=== PATIENT | male | born 1930 | race Two or more races ===

== ENCOUNTER 2017-04-01 18:22 | Inpatient (IN) | payer MEDICARE, MEDICAID ==
--- NOTE | 2017-04-01 18:56 | ED Physician Chart ---
ED Chief Complaint/HPI - Patient Information Date Seen:: 04/01/17 Time Seen:: 16:30 Chief Complaint:: Agitation History of Present Illness:: onset x one day of agitation and confusion; no report of trauma, H/As, neck pain , C/P, SOB, Abd. Pain, A/N/V/D/c, SIs, fever, chills, or urinary s/s Allergies:: Allergies Allergy/AdvReac Type Severity Reaction Status Date / Time No Known Allergies Allergy Verified 04/01/17 18:28 Vitals:: Vital Signs - 8 hr 04/01/17 18:31 Temp 96.7 F HR 89 RR 18 BP 124/47 O2 Sat % 91 Historian:: Patient, EMS Review:: Nurse's Note Reviewed, EMS run form Reviewed, Transfer documents Reviewed <Irvin Barnes - Last Filed: 04/01/17 18:50> - Patient Information Allergies:: Allergies Allergy/AdvReac Type Severity Reaction Status Date / Time No Known Allergies Allergy Verified 04/01/17 18:28 Vitals:: Vital Signs - 8 hr 04/01/17 18:31 Temp 96.7 F HR 89 RR 18 BP 124/47 O2 Sat % 91 <Vega Bragg - Last Filed: 04/01/17 21:21> ED Review of Systems - Review of Systems General/Constitutional: No fever, No chills, No weight loss, No weakness, No diaphoresis, No edema, No loss of appetite Skin: No skin lesions, No rash, No bruising Head: No headache, No light-headedness Eyes: No loss of vision, No pain, No diplopia ENT: No earache, No nasal drainage, No sore throat, No tinnitus Neck: No neck pain, No swelling, No thyromegaly, No stiffness, No mass noted Cardio Vascular: No chest pain, No palpitations, No PND, No orthopnea, No edema Pulmonary: No SOB, No cough, No sputum, No wheezing GI: No nausea, No vomiting, No diarrhea, No pain, No melena, No hematochezia, No constipation, No hematemesis G/U: No dysuria, No frequency, No hematuria Musculoskeletal: No bone or joint pain, No back pain, No muscle pain Endocrine: No polyuria, No polydipsia Psychiatric: Prior psych history, Depression, No anxiety, No suicidal ideation, No homicidal ideation, No auditory hallucination, No visual hallucination Hematopoietic: No bruising, No lymphadenopathy Allergic/Immuno: No urticaria, No angioedema Neurological: No syncope, No focal symptoms, No weakness, No paresthesia, No headache, No seizure, No dizziness, Confusion, No vertigo <Irvin Barnes Last Filed: 04/01/17 18:50> ED Past Medical History - Past Medical History Obtainable: Yes Past Medical History: Arthritis, Dementia, Other (Metabolic Encephalopathy) Family History: HTN Social History: Non Smoker, No Alcohol, No Drug Use, Single, Care Facility Surgical History: None Psychiatricy History: Depression, Bipolar, Dementia Medication: Reviewed <CameronIrvin Filed: 04/01/17 18:50> ED Physical Exam - Physical Examination General/Constitutional: Awake, Well-developed, well-nourished, Alert, No distress, GCS 15, Non-toxic appearing, Ambulatory Head: Atraumatic Eyes: Lids, conjuctiva normal, PERRL, EOMI Skin: Nl inspection, No rash, No skin lesions, No ecchymosis, Well hydrated, No lymphadenopathy ENMT: External ears, nose nl, Nasal exam nl, Lips, teeth, gums nl Neck: Nontender, Full ROM w/o pain, No JVD, No nuchal rigidity, No bruit, No mass, No stridor Respiratory: Nl effort/Exclusion, Clear to Auscultation, No Wheeze/Rhonchi/Rales Cardio Vascular: RRR, No murmur, gallop, rubs, NL S1 S2 GI: No tenderness/rebounding/guarding, No organomegaly, No hernia, Normal BS's, Nondistended, No mass/bruits, No McBurney tenderness : No CVA tenderness Extremities: No tenderness or effusion, Full ROM, normal strength in all extremities, No edema, Normal digits & nails Neuro/Psych: DTR's symmetric, Normal sensory exam, Normal motor strength, Judgement/insight normal, Mood normal, Normal gait, No focal deficits Other Neuro/Psych comments:: Disoriented and Confused; + Psychomotor Agitation; Mood/Affect: Labile Misc: Normal back, No paraspinal tenderness <SheritacesareuniceIrvin - Last Filed: 04/01/17 18:50> ED Labs/Radiology/EKG Results - Lab Results Results: Laboratory Tests 04/01/17 04/01/17 04/01/17 19:12 19:12 19:12 WBC 15.0 H RBC 4.40 Hgb 13.6 Hct 41.3 MCV 94.0 MCH 31.0 MCHC Differential 33.0 RDW 17.0 Plt Count 125 L MPV 8.3 Neutrophils (Manual) 54 Lymphocytes 29 Monocytes 14 H Eosinophils 1 Basophils 2 Platelet Estimate SLIGHT DECREASED Sodium 136 Potassium 3.9 Chloride 106 Carbon Dioxide 24.1 Anion Gap 9.8 BUN 45 H Creatinine 1.4 H Est GFR ( Amer) TNP Est GFR (Non-Af Amer) TNP BUN/Creatinine Ratio 32.1 Glucose 98 Hemoglobin A1c % 5.2 Whole Bld Lactic Acid Calcium 9.2 Total Bilirubin 0.7 AST 20 ALT 18 Alkaline Phosphatase 90 Total Protein 7.8 Albumin 3.7 L Globulin 4.1 Albumin/Globulin Ratio 0.9 L Triglycerides 127 Cholesterol 126 LDL Cholesterol Direct 75 HDL Cholesterol 38 TSH Urine Source Urine Color Urine Clarity Urine pH Ur Specific [place] Urine Protein Urine Glucose (UA) Urine Ketones Urine Blood Urine Nitrate Urine Bilirubin Urine Urobilinogen Ur Leukocyte Esterase Urine RBC Urine WBC Ur Epithelial Cells Urine Bacteria Salicylates < 25.0 L Urine Opiates Screen Urine Methadone Screen Acetaminophen < 10.0 L Ur Barbiturates Screen Ur Tricyclics Screen Ur Phencyclidine Scrn Amphetamines Screen U Methamphetamines Scrn U Benzodiazepines Scrn U Cocaine Metab Screen U Cannabinoids Screen Ethyl Alcohol < 10 04/01/17 04/01/17 04/01/17 19:12 19:12 19:45 WBC RBC Hgb Hct MCV MCH MCHC Differential RDW Plt Count MPV Neutrophils (Manual) Lymphocytes Monocytes Eosinophils Basophils Platelet Estimate Sodium Potassium Chloride Carbon Dioxide Anion Gap BUN Creatinine Est GFR ( Amer) Est GFR (Non-Af Amer) BUN/Creatinine Ratio Glucose Hemoglobin A1c % Whole Bld Lactic Acid 0.95 Calcium Total Bilirubin AST ALT Alkaline Phosphatase Total Protein Albumin Globulin Albumin/Globulin Ratio Triglycerides Cholesterol LDL Cholesterol Direct HDL Cholesterol TSH Urine Source CLEAN C Urine Color YELLOW Urine Clarity HAZY Urine pH 6.0 Ur Specific [place] 1.025 Urine Protein 100 H Urine Glucose (UA) NEGATIVE Urine Ketones NEGATIVE Urine Blood MODERATE H Urine Nitrate POSITIVE H Urine Bilirubin NEGATIVE Urine Urobilinogen 0.2 Ur Leukocyte Esterase LARGE H Urine RBC 5-10 H Urine WBC >100 H Ur Epithelial Cells FEW Urine Bacteria MANY Salicylates Urine Opiates Screen Urine Methadone Screen Acetaminophen Ur Barbiturates Screen Ur Tricyclics Screen Ur Phencyclidine Scrn Amphetamines Screen U Methamphetamines Scrn U Benzodiazepines Scrn U Cocaine Metab Screen U Cannabinoids Screen Ethyl Alcohol 04/01/17 19:45 WBC RBC Hgb Hct MCV MCH MCHC Differential RDW Plt Count MPV Neutrophils (Manual) Lymphocytes Monocytes Eosinophils Basophils Platelet Estimate Sodium Potassium Chloride Carbon Dioxide Anion Gap BUN Creatinine Est GFR ( Amer) Est GFR (Non-Af Amer) BUN/Creatinine Ratio Glucose Hemoglobin A1c % Whole Bld Lactic Acid Calcium Total Bilirubin AST ALT Alkaline Phosphatase Total Protein Albumin Globulin Albumin/Globulin Ratio Triglycerides Cholesterol LDL Cholesterol Direct HDL Cholesterol TSH Urine Source Urine Color Urine Clarity Urine pH Ur Specific [place] Urine Protein Urine Glucose (UA) Urine Ketones Urine Blood Urine Nitrate Urine Bilirubin Urine Urobilinogen Ur Leukocyte Esterase Urine RBC Urine WBC Ur Epithelial Cells Urine Bacteria Salicylates Urine Opiates Screen NEGATIVE Urine Methadone Screen NEGATIVE Acetaminophen Ur Barbiturates Screen NEGATIVE Ur Tricyclics Screen NEGATIVE Ur Phencyclidine Scrn NEGATIVE Amphetamines Screen NEGATIVE U Methamphetamines Scrn NEGATIVE U Benzodiazepines Scrn NEGATIVE U Cocaine Metab Screen NEGATIVE U Cannabinoids Screen NEGATIVE Ethyl Alcohol <Vega Bragg - Last Filed: 04/01/17 21:21> ED Septic Shock - . Is Septic Shock (SBP<90, OR Lactate>4 mmol\L) present?: No - <6hrs of presentation: Vital Signs: Vital Signs - 8 hr 04/01/17 18:31 Temp 96.7 F HR 89 RR 18 BP 124/47 O2 Sat % 91 <Irvin Barnes - Last Filed: 04/01/17 18:50> - . Is Septic Shock (SBP<90, OR Lactate>4 mmol\L) present?: No - <6hrs of presentation: Vital Signs: Vital Signs - 8 hr 04/01/17 18:31 Temp 96.7 F HR 89 RR 18 BP 124/47 O2 Sat % 91 <Vega Bragg - Last Filed: 04/01/17 21:21> ED Reassessment (Disposition) - Reassessment Reassessment:: pt in stable condition while in ER. findings on lab evaluation consistent with acute urinary infection with WBC 15. normal lactate. pt in stable condition. pt to receive PO levofloxacin now. Reassessment Condition:: Unchanged - Diagnosis Diagnosis:: acute psychosis acute urinary infection - Patient Disposition Discharge/Transfer:: Acute Care w/in this hosp Admitted to:: [facility] Admitting Medical Physician:: Gelacio Hanna Admitting Psych Physician:: Yissel Dickey Time:: 21:20 Condition at Disposition:: Stable, Improved <Vega Bragg - Last Filed: 04/01/17 21:21> ED Discharge Plan <Irvin Barnes - Last Filed: 04/01/17 18:50> <Vega Bragg - Last Filed: 04/01/17 21:21> - Patient Disposition Instructions: Psychosis
[2017-04-01 19:22] LABS: HEMATOCRIT 41.3 % (41.0-60); HEMOGLOBIN 13.6 gm/dL (12-16); MEAN PLATELET VOLUME 8.3 fl; NEUTROPHILE ABSOLUTE 7.8 Th/cmm (1.8-8.0); PLATELET COUNT 125 Th/cmm (150-400)
[2017-04-01 19:37] LABS: ALB/GLOB RATIO 0.9 (1.0-1.8); ALKALINE PHOSPHATASE 90 U/L (34-104); ANION GAP 9.8 (7.0-16.0); BILIRUBIN,TOTAL 0.7 mg/dL (0.3-1.0); BUN - UREA NITROGEN 45 mg/dL (7-25); BUN/CREATININE RATIO 32.1; CALCIUM SERUM 9.2 mg/dL (8.6-10.3); CARBON DIOXIDE 24.1 mEq/L (21.0-31.0); CHLORIDE 106 mEq/L (98-107); CHOLESTEROL 126 mg/dL (<200); CREATININE - SERUM 1.4 mg/dL (0.7-1.3); GLUCOSE 98 mg/dL (70-105); POTASSIUM SERUM 3.9 mEq/L (3.5-5.1); SGOT 20 U/L (13-39); SGPT/ALT 18 U/L (7-52); SODIUM SERUM 136 mEq/L (136-145); TRIGLYCERIDES 127 mg/dL (<150)
[2017-04-01 19:38] LABS: ACETAMINOPHEN < 10.0 ug/mL (10.0-30.0)
[2017-04-01 19:51] LABS: BASOPHIL 2 % (0-3); EOSINOPHIL 1 % (0-5); NEUTROPHILS 54 % (40-80)
[2017-04-01 19:52] LABS: PLATELET ESTIMATE SLIGHT DECREASED (NORMAL)
[2017-04-01 20:33] LABS: URINE BILIRUBIN NEGATIVE (NEGATIVE); URINE BLOOD MODERATE (NEGATIVE); URINE GLUCOSE (UA) NEGATIVE (NEGATIVE); URINE KETONE NEGATIVE (NEGATIVE); URINE PROTEIN 100 mg/dL (NEGATIVE); URINE UROBILINOGEN 0.2 E.U./dL (0.2 - 1.0)
[2017-04-01 20:44] LABS: URINE BACTERIA MANY /hpf (NONE SEEN); URINE COLOR YELLOW; URINE EPITHELIAL CELLS FEW /lpf (FEW)
[2017-04-01 20:45] LABS: URINE WBC >100 /hpf (0-5)
[2017-04-01 20:48] LABS: AMPHETAMINE URINE NEGATIVE (NEGATIVE); BARBITURATES URINE NEGATIVE (NEGATIVE); METHADONE URINE NEGATIVE (NEGATIVE)
--- NOTE | 2017-04-02 07:49 | Diagnostic Imaging Report ---
CHEST X-RAY: AP view INDICATION: Elevated white blood cell count, shortness of breath COMPARISON: None FINDINGS: Increased left basal density is noted. No pleural effusions. Heart size is normal. Atherosclerosis of the aortic arch is noted. The osseous structures are intact. IMPRESSION: Left basal atelectasis versus infiltrate. Clinical correlation is recommended.
[2017-04-02] MEDS: Aspirin 81mg Chewable Tab PO SCH (08:33)
[2017-04-02] MEDS: Ferrous Sulfate 325 MG TAB PO SCH ×3 (08:33→16:20)
[2017-04-02] MEDS: Multivitamin Tab PO SCH (08:36)
--- NOTE | 2017-04-02 13:09 | History and Physical ---
History of Present Illness - HPI Chief Complaint: Increased in confusion and agitation HPI: Patient is a permanent resident of a [facility]. He was send to ER due to Increased in agitation. Vital Signs: Last Vital Signs Temp 97.8 F 04/02/17 06:40 Pulse 73 04/02/17 06:40 Resp 19 04/02/17 06:40 BP 111/57 04/02/17 06:40 Pulse Ox 98 04/02/17 06:40 Family Medical History - Family Member Mother History Unknown: Yes Ethnicity: Unknown Living Status: Unknown Social History Smoke: No Alcohol: None Drugs: None Lives: [facility] Domestic Violence: Negative - Medications Home Medications: Home Medication Medication Instructions Recorded Type Acetaminophen [Tylenol] 650 mg PO Q6HR PRN 04/01/17 History Allopurinol 200 mg PO DAILY 04/01/17 History Aspirin [Aspirin Chewable] 81 mg PO DAILY 04/01/17 History Bisacodyl [Dulcolax 10 Mg Supp] 10 mg RC DAILY PRN 04/01/[address] [Depakote DR] 250 mg PO Q12H 04/01/17 History Docusate Sodium [Colace] 100 mg PO DAILY 04/01/17 History Ferrous Sulfate [Iron] 1 tab PO BID 04/01/17 History Finasteride [Proscar*] 5 mg PO DAILY 04/01/17 History Memantine [Namenda] 5 mg PO HS 04/01/17 History Multivitamin [Multivitamins] 1 cap PO DAILY 04/01/17 History [place]-3 Fatty Acids/Fish Oil 2 each PO BID 04/01/17 History [[place] 3 Fish Oil Softgel] QUEtiapine Fumarate [SEROquel] 25 mg PO Q12H 04/01/17 History Sennosides A and B [Senna] 8.6 mg PO DAILY 04/01/17 History - Allergies Allergies/Adverse Reactions: Allergies Allergy/AdvReac Type Severity Reaction Status Date / Time No Known Allergies Allergy Verified 04/01/17 18:28 Review of Systems - Review of Systems Constitutional: Report: No Significant Eyes: Report: No Significant ENT: Report: No Significant Respiratory: Report: No Significant Cardiovascular: Report: No Significant Gastrointestinal: Report: No Significant Genitourinary: Report: No Significant Musculoskeletal: Report: No Significant Skin: Report: No Significant Neurological: Report: Weakness Physical Exam - Physical Exam HEENT: Report: Ears Nose Throat within normal limits Neck: Report: Within normal limits Cardiovascular Systems: Report: Regular, Rate and Rhythm Respiratory: Report: Breath Sounds are within normal limits Back: Report: Inspection of back is within normal limits. Extremities: Report: Non-tender to palpation. Skin: Report: Color of skin is within normal limits, Warm, Dry Neuro/Psych: Report: Depressed affect - Assessment Assessment: Current Active Problems Problem Status Onset INCREASED CONFUSION AND AGITATION Acute Patient is awake, alert, confused, not oriented. Dx: Increased in agitation, UTI, Gout, BPH, Dementia - Plan Plan: Patient is follow by psychiatry. AB will be started.
[2017-04-02] MEDS ORDERED: Probiotic Screen MC PRN (15:29)
[2017-04-02] MEDS: Sulfamethoxazole/TMP 800/160mg Tab PO SCH ×2 (16:05→16:21)
[2017-04-02] MEDS: Lactobacillus Rhamnosus 10 Billion CFU Capsule PO SCH (16:20)
--- NOTE | 2017-04-02 23:24 | Psychosocial Evaluation ---
DATE OF SERVICE: 04/01/2017 IDENTIFYING DATA: The patient is an 87-year-old male admitted here from [facility]. Information obtained by directly interviewing the patient as well as reviewing the admission papers and they are reliable. JUSTIFICATION OF HOSPITALIZATION: The patient is admitted here on a voluntary basis in view of his confusion and acute agitation. CHIEF COMPLAINT: "I do not know, I am not feeling well." HISTORY OF PRESENT ILLNESS: This is the first psychiatric hospitalization to [facility] for this patient who is reported to have been very very agitated and confused and not making much sense. Prior to the hospitalization, the patient has been on 250 mg twice a day of Depakote and Seroquel also he has been getting 25 mg twice a day and the patient has been very confused and is not making much sense and has been trying to pull the Marni chair handle and then wants to get out of the Marni chair. The patient is getting easily frustrated. PAST PSYCHIATRIC HISTORY: Details are not known. MEDICAL HISTORY: Physical examination is requested by Dr. Hanna. SUBSTANCE ABUSE HISTORY: None. PHYSICAL OR SEXUAL ABUSE HISTORY: None. LEGAL PROBLEMS: None at this time. MENTAL STATUS EXAMINATION: The patient is an 87-year-old, looking his stated age, superficially cooperative. Eye contact is poor. Mood is noted to be depressed. Affect is constricted. The patient has been having difficult time to cope with the stress. The patient's insight and judgment at this time are noted to be impaired. Impulse control seems to be limited. The patient has both short-term and manager long term care memory deficits. The patient is not able to recall his date of or the reason for him to be in the hospital. The patient has been having difficult time to cope with the stress. The patient's behavior is likely danger to self because of his agitation. DIAGNOSTIC IMPRESSION: 1a. 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 IMMEDIATE TREATMENT PLAN: The patient is going to be observed on inpatient unit, provided with supportive psychotherapy. The patient is going to be closely monitored. Once stabilized, the patient is going to be discharged to [facility] to be followed up on an outpatient basis. Please note that the patient is going to be continued on the Seroquel and followed up. JOB# [id number]
[2017-04-03] MEDS: Multivitamin Tab PO SCH (10:42)
[2017-04-03] MEDS: Aspirin 81mg Chewable Tab PO SCH (10:43)
[2017-04-03] MEDS: Sulfamethoxazole/TMP 800/160mg Tab PO SCH ×2 (10:43→16:48)
[2017-04-03] MEDS: Ferrous Sulfate 325 MG TAB PO SCH ×2 (10:43→16:48)
[2017-04-03] MEDS: Lactobacillus Rhamnosus 10 Billion CFU Capsule PO SCH (10:44)
--- NOTE | 2017-04-03 16:49 | General Progress Note ---
Subjective - Review of Systems Service Date: 04/03/17 Subjective: Confused Objective - Results Result Diagrams: 04/01/17 19:12 04/01/17 19:12 Recent Labs: Laboratory Last Values WBC 15.0 Th/cmm (4.8-10.8) H 04/01/17 19:12 RBC 4.40 Mil/cmm (3.80-5.80) 04/01/17 19:12 Hgb 13.6 gm/dL (12-16) 04/01/17 19:12 Hct 41.3 % (41.0-60) 04/01/17 19:12 MCV 94.0 fl (80-99) 04/01/17 19:12 MCH 31.0 pg (27.0-31.0) 04/01/17 19:12 MCHC Differential 33.0 pg (28.0-36.0) 04/01/17 19:12 RDW 17.0 % (11.5-20.0) 04/01/17 19:12 Plt Count 125 Th/cmm (150-400) L 04/01/17 19:12 MPV 8.3 fl 04/01/17 19:12 Neutrophils (Manual) 54 % (40-80) 04/01/17 19:12 Lymphocytes 29 % (20-50) 04/01/17 19:12 Monocytes 14 % (2-10) H 04/01/17 19:12 Eosinophils 1 % (0-5) 04/01/17 19:12 Basophils 2 % (0-3) 04/01/17 19:12 Platelet Estimate SLIGHT DECREASED (NORMAL) 04/01/17 19:12 Sodium 136 mEq/L (136-145) 04/01/17 19:12 Potassium 3.9 mEq/L (3.5-5.1) 04/01/17 19:12 Chloride 106 mEq/L (98-107) 04/01/17 19:12 Carbon Dioxide 24.1 mEq/L (21.0-31.0) 04/01/17 19:12 Anion Gap 9.8 (7.0-16.0) 04/01/17 19:12 BUN 45 mg/dL (7-25) H 04/01/17 19:12 Creatinine 1.4 mg/dL (0.7-1.3) H 04/01/17 19:12 Est GFR ( Amer) TNP 04/01/17 19:12 Est GFR (Non-Af Amer) TNP 04/01/17 19:12 BUN/Creatinine Ratio 32.1 04/01/17 19:12 Glucose 98 mg/dL (70-105) 04/01/17 19:12 Hemoglobin A1c % 5.2 % (4.0-6.0) 04/01/17 19:12 Whole Bld Lactic Acid 0.95 mmol/L (0.60-1.99) 04/01/17 19:12 Calcium 9.2 mg/dL (8.6-10.3) 04/01/17 19:12 Total Bilirubin 0.7 mg/dL (0.3-1.0) 04/01/17 19:12 AST 20 U/L (13-39) 04/01/17 19:12 ALT 18 U/L (7-52) 04/01/17 19:12 Alkaline Phosphatase 90 U/L (34-104) 04/01/17 19:12 Total Protein 7.8 gm/dL (6.0-8.3) 04/01/17 19:12 Albumin 3.7 gm/dL (4.2-5.5) L 04/01/17 19:12 Globulin 4.1 gm/dL 04/01/17 19:12 Albumin/Globulin Ratio 0.9 (1.0-1.8) L 04/01/17 19:12 Triglycerides 127 mg/dL (<150) 04/01/17 19:12 Cholesterol 126 mg/dL (<200) 04/01/17 19:12 LDL Cholesterol Direct 75 mg/dL (75-193) 04/01/17 19:12 HDL Cholesterol 38 mg/dL (23-92) 04/01/17 19:12 TSH uIU/ml (0.34-5.60) 04/01/17 19:12 Urine Source CLEAN C 04/01/17 19:45 Urine Color YELLOW 04/01/17 19:45 Urine Clarity HAZY (CLEAR) 04/01/17 19:45 Urine pH 6.0 (4.6 - 8.0) 04/01/17 19:45 Ur Specific [place] 1.025 (1.005-1.030) 04/01/17 19:45 Urine Protein 100 mg/dL (NEGATIVE) H 04/01/17 19:45 Urine Glucose (UA) NEGATIVE mg/dL (NEGATIVE) 04/01/17 19:45 Urine Ketones NEGATIVE mg/dL (NEGATIVE) 04/01/17 19:45 Urine Blood MODERATE (NEGATIVE) H 04/01/17 19:45 Urine Nitrate POSITIVE (NEGATIVE) H 04/01/17 19:45 Urine Bilirubin NEGATIVE (NEGATIVE) 04/01/17 19:45 Urine Urobilinogen 0.2 E.U./dL (0.2 - 1.0) 04/01/17 19:45 Ur Leukocyte Esterase LARGE (NEGATIVE) H 04/01/17 19:45 Urine RBC 5-10 /hpf (0-5) H 04/01/17 19:45 Urine WBC >100 /hpf (0-5) H 04/01/17 19:45 Ur Epithelial Cells FEW /lpf (FEW) 04/01/17 19:45 Urine Bacteria MANY /hpf (NONE SEEN) 04/01/17 19:45 Salicylates < 25.0 mg/L (30.0-100.0) L 04/01/17 19:12 Urine Opiates Screen NEGATIVE (NEGATIVE) 04/01/17 19:45 Urine Methadone Screen NEGATIVE (NEGATIVE) 04/01/17 19:45 Acetaminophen < 10.0 ug/mL (10.0-30.0) L 04/01/17 19:12 Ur Barbiturates Screen NEGATIVE (NEGATIVE) 04/01/17 19:45 Ur Tricyclics Screen NEGATIVE (NEGATIVE) 04/01/17 19:45 Ur Phencyclidine Scrn NEGATIVE (NEGATIVE) 04/01/17 19:45 Amphetamines Screen NEGATIVE (NEGATIVE) 04/01/17 19:45 U Methamphetamines Scrn NEGATIVE (NEGATIVE) 04/01/17 19:45 U Benzodiazepines Scrn NEGATIVE (NEGATIVE) 04/01/17 19:45 U Cocaine Metab Screen NEGATIVE (NEGATIVE) 04/01/17 19:45 U Cannabinoids Screen NEGATIVE (NEGATIVE) 04/01/17 19:45 Ethyl Alcohol < 10 mg/dL (0-10) 04/01/17 19:12 - Physical Exam Vitals and I&O: Vital Signs Temp 98.1 F 04/03/17 14:02 Pulse 72 04/03/17 14:02 Resp 20 04/03/17 14:02 BP 106/58 04/03/17 14:02 Pulse Ox 98 04/03/17 14:02 Intake & Output 04/02/17 04/03/17 04/03/17 18:59 06:59 18:59 Intake Total 2400 180 Output Total 1400 Balance 1000 180 Intake: Oral 2400 180 Output: Urine 1400 Other: # Voids 1 # Bowel Movements 0 1 Active Medications: Current Medications Acetaminophen (Tylenol) 650 mg PO Q6HR PRN PRN Reason: MILD PAIN Stop: 05/31/17 23:20 Allopurinol (Zyloprim) 200 mg PO DAILY MAK Stop: 06/01/17 08:59 Last Admin: 04/03/17 10:44 Dose: 200 mg Aspirin (Aspirin Chewable) 81 mg PO DAILY MAK Stop: 06/01/17 08:59 Last Admin: 04/03/17 10:43 Dose: 81 mg Bisacodyl (Dulcolax 10 Mg Supp) 10 mg RC DAILY PRN PRN Reason: CONSTIPATION NO BM 3 DAYS Stop: 05/31/17 23:20 Docusate Sodium (Colace) 100 mg PO DAILY MAK Stop: 06/01/17 08:59 Last Admin: 04/03/17 10:43 Dose: 100 mg Ferrous Sulfate (Iron) 325 mg PO BID MAK Stop: 06/01/17 08:59 Last Admin: 04/03/17 10:43 Dose: 325 mg Finasteride (Proscar) 5 mg PO DAILY AMK PRN Reason: Protocol Stop: 06/01/17 08:59 Last Admin: 04/03/17 10:43 Dose: 5 mg Lactobacillus Rhamnosus (Culturelle) 1 each PO DAILY MAK Stop: 06/01/17 15:59 Last Admin: 04/03/17 10:44 Dose: 1 each Levofloxacin (Levaquin) 500 mg PO DAILY [facility] Stop: 04/11/17 09:01 Last Admin: 04/03/17 10:43 Dose: 500 mg Lorazepam (Ativan) 0.5 mg PO Q4HR PRN; Protocol PRN Reason: Anxiety Stop: 05/01/17 23:12 Memantine (Namenda) 5 mg PO HS MAK Stop: 06/01/17 20:59 Last Admin: 04/02/17 21:00 Dose: 5 mg Miscellaneous (Probiotic Screen) 1 ea MC PRN PRN PRN Reason: PROTOCOL Stop: 06/01/17 15:28 Multivitamins/Vitamin C (Theragran) 1 tab PO DAILY [facility] Stop: 06/01/17 08:59 Last Admin: 04/03/17 10:42 Dose: 1 tab Quetiapine Fumarate (Seroquel) 25 mg PO HS MAK PRN Reason: Protocol Stop: 06/01/17 20:59 Last Admin: 04/02/17 21:00 Dose: 25 mg Senna (Senna) 8.6 mg PO DAILY MAK Stop: 06/01/17 08:59 Last Admin: 04/03/17 10:43 Dose: 8.6 mg Trimethoprim/Sulfamethoxazole (Bactrim Ds) 1 tab PO BID [facility] Stop: 06/01/17 16:59 Last Admin: 04/03/17 10:43 Dose: 1 tab Valproate Sodium (Depakene) 250 mg PO Q12HR MAK PRN Reason: Protocol Stop: 06/01/17 20:59 Last Admin: 04/03/17 10:44 Dose: 250 mg Zolpidem Tartrate (Ambien) 5 mg PO HS PRN PRN Reason: Insomnia Stop: 05/31/17 23:12 General: Alert, Other (Confused) HEENT: Atraumatic Neck: Supple Cardiovascular: Regular rate Lungs: Clear to auscultation Abdomen: Bowel sounds, Soft Extremities: Other (No edema) Neurological: Other (Non ambulatory) Skin: Other (Warm and dry) Assessment/Plan - Problem List Patient Problems: All Active Problems INCREASED CONFUSION AND AGITATION (Acute) - Assessment Assessment: Current Active Problems Problem Status Onset INCREASED CONFUSION AND AGITATION Acute Patient is awake, alert, confused, not oriented. Dx: Increased in agitation, UTI, Gout, BPH, Dementia - Plan Plan: Patient is follow by psychiatry. AB will be started. Nutritional Asmnt/Malnutr-PDOC - Dietary Evaluation Malnutrition Findings (Please click <Entered> for more info): Nutritional Asmnt/Malnutrition Start: 04/03/17 13: 09 Text: Status: Complete Freq: Document 04/03/17 13:09 [facility] (Rec: 04/03/17 13:17 [id number]) Nutritional Asmnt/Malnutrition Patient General Information Nutritional Screening Moderate Risk Diagnosis increased in agitaion, UTI, Gout, BPH, dementia Subjective Information RN reported pt had poor PO intake and requested RD to visit pt. Pt seen lying in bed , awake. confused, not ablt to obtain nutrition hx. Per note , PO intake was 0-25% by eating self yesterday 04/02. Spoke to nurse, pt consumed 100% of breakfast this morning with feeding. Visited again during lunch time, pt was saying no and refesed food. Asked SYSTEMS CONSULTANT to try later and feed slowly. Current Diet Order/ Nutrition Support [facility] soft Pertinent Medications colace, Iron, culturelle, Levauin, MVI, Vit C, Seroquel, Senna Pertinent Labs 04/01 BUN 45H, Cr 1.4H, Alb 3. 7L, Glu 98. A1C 5.2 Nutritional Hx/Data Height 1.68 m Height (Calculated Centimeters) 167.6 Current Weight (lbs) 65.771 kg Weight (Calculated Kilograms) 65.8 Weight (Calculated Grams) 65044.9 [place] Body Weight 142 % [place] Body Weight 102 Body Mass Index (BMI) 23.3 Weight Status Approriate GI Symptoms GI Symptoms None Last BM 04/03 Difficult in: None Food Allergies No Current %PO Poor (25-49%) Estimated Nutritional Goals BEE in Kcals: Using Current wt Calories/Kcals/Kg 25-30 Kcals Calculated 7522-7247 Protein: Using Current wt Protein g/k.8-1 Protein Calculated 53-66 Fluid: ml [id number] Nutritional Problem 1. Problem Problem inadequant oral food intake Etiology ? dementia, ? confused, ? poor appetite Signs/Symptoms: PO intake 0-25% Malnutrition Alert Protein-Calorie Malnutrition N/A Is there a minimum of two criteria No selected? Query Text:Check all the applicable criteria. A minimum of two criteria are recommended for diagnosis of either severe or non-severe malnutrition. Intervention/Recommendation Comments 1. Continue with [facility] soft diet as tolerated 2. Recommend to feed pt slowly , provide cues to eat 3. Monitor appetite, PO intake , wt weekly, skin integrity 4. F/U as high risk in 2-3 days, 04/05-04/07 Expected Outcomes/Goals Expected Outcomes/Goals 1. PO intake to improve at least 50% to meet nutritional needs 2. wt stablility, skin to remain intact
--- NOTE | 2017-04-03 23:28 | Progress Notes ---
DATE: 04/03/2017 SUBJECTIVE: Staff was spoken to. The patient is interviewed. Mood is noted to be irritable. Affect is constricted. Insight and judgment at this time are noted to be still impaired. Impulse control is noted to be poor. Coping skills are also noted to be poor. The patient is very confused and not making much sense. The patient has both short-term and long-term memory deficits. He is currently on 25 mg of Seroquel at bedtime and is also on valproic acid 250 mg twice a day, the patient has been able to tolerate the medication. ASSESSMENT: The patient is still psychotic. PLAN: To continue the patient with the current medications and follow. JOB# [id number]
[2017-04-04 07:26] LABS: HEMATOCRIT 40.7 % (41.0-60); HEMOGLOBIN 13.3 gm/dL (12-16); MEAN CELL VOLUME 94.4 fl (80-99); MEAN CORPUSCULAR HEMOGLOBIN 30.9 pg (27.0-31.0); MEAN CORPUSCULAR HGB CONC 32.8 pg (28.0-36.0); MEAN PLATELET VOLUME 8.5 fl; NEUTROPHILE ABSOLUTE 6.5 Th/cmm (1.8-8.0); PLATELET COUNT 111 Th/cmm (150-400); RED BLOOD COUNT 4.31 Mil/cmm (3.80-5.80)
[2017-04-04 07:57] LABS: ALB/GLOB RATIO 0.9 (1.0-1.8); ALKALINE PHOSPHATASE 84 U/L (34-104); ANION GAP 8.6 (7.0-16.0); BILIRUBIN,TOTAL 0.5 mg/dL (0.3-1.0); BUN - UREA NITROGEN 46 mg/dL (7-25); BUN/CREATININE RATIO 25.6; CALCIUM SERUM 9.1 mg/dL (8.6-10.3); CHLORIDE 108 mEq/L (98-107); CREATININE - SERUM 1.8 mg/dL (0.7-1.3); GLUCOSE 93 mg/dL (70-105); POTASSIUM SERUM 4.6 mEq/L (3.5-5.1); SGOT 15 U/L (13-39); SGPT/ALT 13 U/L (7-52); SODIUM SERUM 138 mEq/L (136-145)
[2017-04-04 08:20] LABS: WHITE BLOOD COUNT 14.7 Th/cmm (4.8-10.8)
--- NOTE | 2017-04-04 09:19 | General Progress Note ---
Subjective - Review of Systems Service Date: 04/04/17 Subjective: Confused Objective - Results Result Diagrams: 04/04/17 07:15 04/04/17 07:15 Recent Labs: Laboratory Last Values WBC 14.7 Th/cmm (4.8-10.8) H 04/04/17 07:15 RBC 4.31 Mil/cmm (3.80-5.80) 04/04/17 07:15 Hgb 13.3 gm/dL (12-16) 04/04/17 07:15 Hct 40.7 % (41.0-60) L 04/04/17 07:15 MCV 94.4 fl (80-99) 04/04/17 07:15 MCH 30.9 pg (27.0-31.0) 04/04/17 07:15 MCHC Differential 32.8 pg (28.0-36.0) 04/04/17 07:15 RDW 17.0 % (11.5-20.0) 04/04/17 07:15 Plt Count 111 Th/cmm (150-400) L 04/04/17 07:15 MPV 8.5 fl 04/04/17 07:15 Neutrophils (Manual) 54 % (40-80) 04/01/17 19:12 Lymphocytes 29 % (20-50) 04/01/17 19:12 Monocytes 14 % (2-10) H 04/01/17 19:12 Eosinophils 1 % (0-5) 04/01/17 19:12 Basophils 2 % (0-3) 04/01/17 19:12 Platelet Estimate SLIGHT DECREASED (NORMAL) 04/01/17 19:12 Sodium 138 mEq/L (136-145) 04/04/17 07:15 Potassium 4.6 mEq/L (3.5-5.1) 04/04/17 07:15 Chloride 108 mEq/L (98-107) H 04/04/17 07:15 Carbon Dioxide 26.0 mEq/L (21.0-31.0) 04/04/17 07:15 Anion Gap 8.6 (7.0-16.0) 04/04/17 07:15 BUN 46 mg/dL (7-25) H 04/04/17 07:15 Creatinine 1.8 mg/dL (0.7-1.3) H 04/04/17 07:15 Est GFR ( Amer) TNP 04/04/17 07:15 Est GFR (Non-Af Amer) TNP 04/04/17 07:15 BUN/Creatinine Ratio 25.6 04/04/17 07:15 Glucose 93 mg/dL (70-105) 04/04/17 07:15 Hemoglobin A1c % 5.2 % (4.0-6.0) 04/01/17 19:12 Whole Bld Lactic Acid 0.95 mmol/L (0.60-1.99) 04/01/17 19:12 Calcium 9.1 mg/dL (8.6-10.3) 04/04/17 07:15 Total Bilirubin 0.5 mg/dL (0.3-1.0) 04/04/17 07:15 AST 15 U/L (13-39) 04/04/17 07:15 ALT 13 U/L (7-52) 04/04/17 07:15 Alkaline Phosphatase 84 U/L (34-104) 04/04/17 07:15 Total Protein 7.3 gm/dL (6.0-8.3) 04/04/17 07:15 Albumin 3.5 gm/dL (4.2-5.5) L 04/04/17 07:15 Globulin 3.8 gm/dL 04/04/17 07:15 Albumin/Globulin Ratio 0.9 (1.0-1.8) L 04/04/17 07:15 Triglycerides 127 mg/dL (<150) 04/01/17 19:12 Cholesterol 126 mg/dL (<200) 04/01/17 19:12 LDL Cholesterol Direct 75 mg/dL (75-193) 04/01/17 19:12 HDL Cholesterol 38 mg/dL (23-92) 04/01/17 19:12 TSH uIU/ml (0.34-5.60) 04/01/17 19:12 Urine Source CLEAN C 04/01/17 19:45 Urine Color YELLOW 04/01/17 19:45 Urine Clarity HAZY (CLEAR) 04/01/17 19:45 Urine pH 6.0 (4.6 - 8.0) 04/01/17 19:45 Ur Specific D [place] 1.025 (1.005-1.030) 04/01/17 19:45 Urine Protein 100 mg/dL (NEGATIVE) H 04/01/17 19:45 Urine Glucose (UA) NEGATIVE mg/dL (NEGATIVE) 04/01/17 19:45 Urine Ketones NEGATIVE mg/dL (NEGATIVE) 04/01/17 19:45 Urine Blood MODERATE (NEGATIVE) H 04/01/17 19:45 Urine Nitrate POSITIVE (NEGATIVE) H 04/01/17 19:45 Urine Bilirubin NEGATIVE (NEGATIVE) 04/01/17 19:45 Urine Urobilinogen 0.2 E.U./dL (0.2 - 1.0) 04/01/17 19:45 Ur Leukocyte Esterase LARGE (NEGATIVE) H 04/01/17 19:45 Urine RBC 5-10 /hpf (0-5) H 04/01/17 19:45 Urine WBC >100 /hpf (0-5) H 04/01/17 19:45 Ur Epithelial Cells FEW /lpf (FEW) 04/01/17 19:45 Urine Bacteria MANY /hpf (NONE SEEN) 04/01/17 19:45 Salicylates < 25.0 mg/L (30.0-100.0) L 04/01/17 19:12 Urine Opiates Screen NEGATIVE (NEGATIVE) 04/01/17 19:45 Urine Methadone Screen NEGATIVE (NEGATIVE) 04/01/17 19:45 Acetaminophen < 10.0 ug/mL (10.0-30.0) L 04/01/17 19:12 Ur Barbiturates Screen NEGATIVE (NEGATIVE) 04/01/17 19:45 Ur Tricyclics Screen NEGATIVE (NEGATIVE) 04/01/17 19:45 Ur Phencyclidine Scrn NEGATIVE (NEGATIVE) 04/01/17 19:45 Amphetamines Screen NEGATIVE (NEGATIVE) 04/01/17 19:45 U Methamphetamines Scrn NEGATIVE (NEGATIVE) 04/01/17 19:45 U Benzodiazepines Scrn NEGATIVE (NEGATIVE) 04/01/17 19:45 U Cocaine Metab Screen NEGATIVE (NEGATIVE) 04/01/17 19:45 U Cannabinoids Screen NEGATIVE (NEGATIVE) 04/01/17 19:45 Ethyl Alcohol < 10 mg/dL (0-10) 04/01/17 19:12 - Physical Exam Vitals and I&O: Vital Signs Temp 98.2 F 04/03/17 20:00 Pulse 77 04/03/17 20:00 Resp 19 04/03/17 20:00 BP 108/67 04/03/17 20:00 Pulse Ox 97 04/03/17 20:00 Intake & Output 04/03/17 04/04/17 04/04/17 18:59 06:59 18:59 Intake Total 1200 240 Output Total 500 950 Balance 700 -710 Intake: Oral 1200 240 Output: Urine 500 950 Other: # Voids 3 # Bowel Movements 1 Active Medications: Current Medications Acetaminophen (Tylenol) 650 mg PO Q6HR PRN PRN Reason: MILD PAIN Stop: 05/31/17 23:20 Allopurinol (Zyloprim) 200 mg PO DAILY [facility] Stop: 06/01/17 08:59 Last Admin: 04/03/17 10:44 Dose: 200 mg Aspirin (Aspirin Chewable) 81 mg PO DAILY [facility] Stop: 06/01/17 08:59 Last Admin: 04/03/17 10:43 Dose: 81 mg Bisacodyl (Dulcolax 10 Mg Supp) 10 mg RC DAILY PRN PRN Reason: CONSTIPATION NO BM 3 DAYS Stop: 05/31/17 23:20 Docusate Sodium (Colace) 100 mg PO DAILY [facility] Stop: 06/01/17 08:59 Last Admin: 04/03/17 10:43 Dose: 100 mg Ferrous Sulfate (Iron) 325 mg PO BID [facility] Stop: 06/01/17 08:59 Last Admin: 04/03/17 16:48 Dose: 325 mg Finasteride (Proscar) 5 mg PO DAILY [facility] PRN Reason: Protocol Stop: 06/01/17 08:59 Last Admin: 04/03/17 10:43 Dose: 5 mg Lactobacillus Rhamnosus (Culturelle) 1 each PO DAILY [facility] Stop: 06/01/17 15:59 Last Admin: 04/03/17 10:44 Dose: 1 each Levofloxacin (Levaquin) 500 mg PO DAILY [facility] Stop: 04/11/17 09:01 Last Admin: 04/03/17 10:43 Dose: 500 mg Lorazepam (Ativan) 0.5 mg PO Q4HR PRN; Protocol PRN Reason: Anxiety Stop: 05/01/17 23:12 Memantine (Namenda) 5 mg PO HS [facility] Stop: 06/01/17 20:59 Last Admin: 04/03/17 20:32 Dose: Not Given Miscellaneous (Probiotic Screen) 1 ea MC PRN PRN PRN Reason: PROTOCOL Stop: 06/01/17 15:28 Multivitamins/Vitamin C (Theragran) 1 tab PO DAILY [facility] Stop: 06/01/17 08:59 Last Admin: 04/03/17 10:42 Dose: 1 tab Quetiapine Fumarate (Seroquel) 25 mg PO HS MAK PRN Reason: Protocol Stop: 06/01/17 20:59 Last Admin: 04/03/17 20:32 Dose: Not Given Senna (Senna) 8.6 mg PO DAILY [facility] Stop: 06/01/17 08:59 Last Admin: 04/03/17 10:43 Dose: 8.6 mg Trimethoprim/Sulfamethoxazole (Bactrim Ds) 1 tab PO BID [facility] Stop: 06/01/17 16:59 Last Admin: 04/03/17 16:48 Dose: 1 tab Valproate Sodium (Depakene) 250 mg PO Q12HR MAK PRN Reason: Protocol Stop: 06/01/17 20:59 Last Admin: 04/03/17 20:32 Dose: Not Given Zolpidem Tartrate (Ambien) 5 mg PO HS PRN PRN Reason: Insomnia Stop: 05/31/17 23:12 General: Alert, Other (Confused) HEENT: Atraumatic Neck: Supple Cardiovascular: Regular rate Lungs: Clear to auscultation Abdomen: Bowel sounds, Soft Extremities: Other (No edema) Neurological: Other (Non ambulatory) Skin: Other (Warm and dry) Assessment/Plan - Problem List Patient Problems: All Active Problems INCREASED CONFUSION AND AGITATION (Acute) - Assessment Assessment: Current Active Problems Problem Status Onset INCREASED CONFUSION AND AGITATION Acute Patient is awake, alert, confused, not oriented. WBC improving, Creatinine increasing. Dx: Increased in agitation, UTI, Gout, BPH, Dementia, - Plan Plan: Patient is follow by psychiatry. on Levaquin and Bactrim. will continue to monitor. Nutritional Asmnt/Malnutr-PDOC - Dietary Evaluation Malnutrition Findings (Please click <Entered> for more info): Nutritional Asmnt/Malnutrition Start: 04/03/17 13: 09 Text: Status: Complete Freq: Document 04/03/17 13:09 ZIGGY (Rec: 04/03/17 13:17 [email or web address]) Nutritional Asmnt/Malnutrition Patient General Information Nutritional Screening Moderate Risk Diagnosis increased in agitaion, UTI, Gout, BPH, dementia Subjective Information RN reported pt had poor PO intake and requested RD to visit pt. Pt seen lying in bed , awake. confused, not ablt to obtain nutrition hx. Per note , PO intake was 0-25% by eating self yesterday 04/02. Spoke to nurse, pt consumed 100% of breakfast this morning with feeding. Visited again during lunch time, pt was saying no and refesed food. Asked TAPEMAN to try later and feed slowly. Current Diet Order/ Nutrition Support [facility] soft Pertinent Medications colace, Iron, culturelle, Levauin, MVI, Vit C, Seroquel, Senna Pertinent Labs 04/01 BUN 45H, Cr 1.4H, Alb 3. 7L, Glu 98. A1C 5.2 Nutritional Hx/Data Height 1.68 m Height (Calculated Centimeters) 167.6 Current Weight (lbs) 65.771 kg Weight (Calculated Kilograms) 65.8 Weight (Calculated Grams) 65692.9 [place] Body Weight 142 % [place] Body Weight 102 Body Mass Index (BMI) 23.3 Weight Status Approriate GI Symptoms GI Symptoms None Last BM 04/03 Difficult in: None Food Allergies No Current %PO Poor (25-49%) Estimated Nutritional Goals BEE in Kcals: Using Current wt Calories/Kcals/Kg 25-30 Kcals Calculated 3294-1983 Protein: Using Current wt Protein g/k.8-1 Protein Calculated 53-66 Fluid: ml 2291-0548 Nutritional Problem 1. Problem Problem inadequant oral food intake Etiology ? dementia, ? confused, ? poor appetite Signs/Symptoms: PO intake 0-25% Malnutrition Alert Protein-Calorie Malnutrition N/A Is there a minimum of two criteria No selected? Query Text:Check all the applicable criteria. A minimum of two criteria are recommended for diagnosis of either severe or non-severe malnutrition. Intervention/Recommendation Comments 1. Continue with [facility] soft diet as tolerated 2. Recommend to feed pt slowly , provide cues to eat 3. Monitor appetite, PO intake , wt weekly, skin integrity 4. F/U as high risk in 2-3 days, 04/05-04/06 Expected Outcomes/Goals Expected Outcomes/Goals 1. PO intake to improve at least 50% to meet nutritional needs 2. wt stablility, skin to remain intact
[2017-04-04] MEDS: Lactobacillus Rhamnosus 10 Billion CFU Capsule PO SCH (10:00)
[2017-04-04] MEDS: Multivitamin Tab PO SCH (10:00)
[2017-04-04] MEDS: Ferrous Sulfate 325 MG TAB PO SCH ×2 (10:00→18:00)
[2017-04-04] MEDS: Sulfamethoxazole/TMP 800/160mg Tab PO SCH ×2 (10:00→18:00)
[2017-04-04] MEDS: Aspirin 81mg Chewable Tab PO SCH (10:00)
--- NOTE | 2017-04-05 01:55 | Progress Notes ---
DATE: 04/04/2017 SUBJECTIVE: Staff was spoken to. The patient is interviewed. Mood is noted to be irritable. Affect is constricted. Coping skills are noted to be still poor. The patient has been having paranoid delusions, not making much sense, both short and long-term memory are also noted to be very poor. No side effects to the medications are noted. The patient's WBC is noted to be still high at 14.7 and primary care physician is looking into this one at this time. The patient has positive nitrites. ASSESSMENT: The patient is still psychotic and having urinary tract infections and Dr. Hanna is going to be requested to review the labs again, the patient is currently on Levaquin 500 mg daily and the patient is encouraged to have fluids liberally. The patient is still psychotic and impulsive. PLAN: To continue the patient with the supportive therapy. I encouraged the patient to verbalize the concerns rather to act out. JOB# [id number]
[2017-04-05 08:33] LABS: HEMATOCRIT 41.7 % (41.0-60); HEMOGLOBIN 13.6 gm/dL (12-16); MEAN CELL VOLUME 95.2 fl (80-99); MEAN CORPUSCULAR HEMOGLOBIN 31.1 pg (27.0-31.0); MEAN CORPUSCULAR HGB CONC 32.6 pg (28.0-36.0); NEUTROPHILE ABSOLUTE 7.6 Th/cmm (1.8-8.0); PLATELET COUNT 101 Th/cmm (150-400); RED BLOOD COUNT 4.38 Mil/cmm (3.80-5.80); RED CELL DISTRIBUTION WIDTH 17.4 % (11.5-20.0); WHITE BLOOD COUNT 15.8 Th/cmm (4.8-10.8)
[2017-04-05] MEDS: Lactobacillus Rhamnosus 10 Billion CFU Capsule PO SCH (08:44)
[2017-04-05] MEDS: Aspirin 81mg Chewable Tab PO SCH (08:44)
[2017-04-05] MEDS: Multivitamin Tab PO SCH (08:44)
[2017-04-05] MEDS: Ferrous Sulfate 325 MG TAB PO SCH (08:45)
[2017-04-05] MEDS: Sulfamethoxazole/TMP 800/160mg Tab PO SCH (08:45)
[2017-04-05 09:02] LABS: ALKALINE PHOSPHATASE 83 U/L (34-104); ANION GAP 7.8 (7.0-16.0); BILIRUBIN,TOTAL 0.4 mg/dL (0.3-1.0); BUN - UREA NITROGEN 39 mg/dL (7-25); BUN/CREATININE RATIO 22.9; CALCIUM SERUM 9.1 mg/dL (8.6-10.3); CARBON DIOXIDE 27.5 mEq/L (21.0-31.0); CHLORIDE 106 mEq/L (98-107); CREATININE - SERUM 1.7 mg/dL (0.7-1.3); GLUCOSE 116 mg/dL (70-105); POTASSIUM SERUM 4.3 mEq/L (3.5-5.1); SGOT 16 U/L (13-39); SGPT/ALT 13 U/L (7-52); SODIUM SERUM 137 mEq/L (136-145)
--- NOTE | 2017-04-05 09:25 | General Progress Note ---
Subjective - Review of Systems Service Date: 04/05/17 Subjective: Confused Objective - Results Result Diagrams: 04/05/17 06:00 04/05/17 08:15 Recent Labs: Laboratory Last Values WBC 15.8 Th/cmm (4.8-10.8) H 04/05/17 06:00 RBC 4.38 Mil/cmm (3.80-5.80) 04/05/17 06:00 Hgb 13.6 gm/dL (12-16) 04/05/17 06:00 Hct 41.7 % (41.0-60) 04/05/17 06:00 MCV 95.2 fl (80-99) 04/05/17 06:00 MCH 31.1 pg (27.0-31.0) H 04/05/17 06:00 MCHC Differential 32.6 pg (28.0-36.0) 04/05/17 06:00 RDW 17.4 % (11.5-20.0) 04/05/17 06:00 Plt Count 101 Th/cmm (150-400) L 04/05/17 06:00 MPV 9.0 fl 04/05/17 06:00 Neutrophils (Manual) 54 % (40-80) 04/01/17 19:12 Lymphocytes 29 % (20-50) 04/01/17 19:12 Monocytes 14 % (2-10) H 04/01/17 19:12 Eosinophils 1 % (0-5) 04/01/17 19:12 Basophils 2 % (0-3) 04/01/17 19:12 Platelet Estimate SLIGHT DECREASED (NORMAL) 04/01/17 19:12 Sodium 137 mEq/L (136-145) 04/05/17 08:15 Potassium 4.3 mEq/L (3.5-5.1) 04/05/17 08:15 Chloride 106 mEq/L (98-107) 04/05/17 08:15 Carbon Dioxide 27.5 mEq/L (21.0-31.0) 04/05/17 08:15 Anion Gap 7.8 (7.0-16.0) 04/05/17 08:15 BUN 39 mg/dL (7-25) H 04/05/17 08:15 Creatinine 1.7 mg/dL (0.7-1.3) H 04/05/17 08:15 Est GFR ( Amer) TNP 04/05/17 08:15 Est GFR (Non-Af Amer) TNP 04/05/17 08:15 BUN/Creatinine Ratio 22.9 04/05/17 08:15 Glucose 116 mg/dL (70-105) H 04/05/17 08:15 Hemoglobin A1c % 5.2 % (4.0-6.0) 04/01/17 19:12 Whole Bld Lactic Acid 0.95 mmol/L (0.60-1.99) 04/01/17 19:12 Calcium 9.1 mg/dL (8.6-10.3) 04/05/17 08:15 Total Bilirubin 0.4 mg/dL (0.3-1.0) 04/05/17 08:15 AST 16 U/L (13-39) 04/05/17 08:15 ALT 13 U/L (7-52) 04/05/17 08:15 Alkaline Phosphatase 83 U/L (34-104) 04/05/17 08:15 Total Protein 7.4 gm/dL (6.0-8.3) 04/05/17 08:15 Albumin 3.6 gm/dL (4.2-5.5) L 04/05/17 08:15 Globulin 3.8 gm/dL 04/05/17 08:15 Albumin/Globulin Ratio 1.0 (1.0-1.8) 04/05/17 08:15 Triglycerides 127 mg/dL (<150) 04/01/17 19:12 Cholesterol 126 mg/dL (<200) 04/01/17 19:12 LDL Cholesterol Direct 75 mg/dL (75-193) 04/01/17 19:12 HDL Cholesterol 38 mg/dL (23-92) 04/01/17 19:12 TSH uIU/ml (0.34-5.60) 04/01/17 19:12 Urine Source CLEAN C 04/01/17 19:45 Urine Color YELLOW 04/01/17 19:45 Urine Clarity HAZY (CLEAR) 04/01/17 19:45 Urine pH 6.0 (4.6 - 8.0) 04/01/17 19:45 Ur Specific [place] 1.025 (1.005-1.030) 04/01/17 19:45 Urine Protein 100 mg/dL (NEGATIVE) H 04/01/17 19:45 Urine Glucose (UA) NEGATIVE mg/dL (NEGATIVE) 04/01/17 19:45 Urine Ketones NEGATIVE mg/dL (NEGATIVE) 04/01/17 19:45 Urine Blood MODERATE (NEGATIVE) H 04/01/17 19:45 Urine Nitrate POSITIVE (NEGATIVE) H 04/01/17 19:45 Urine Bilirubin NEGATIVE (NEGATIVE) 04/01/17 19:45 Urine Urobilinogen 0.2 E.U./dL (0.2 - 1.0) 04/01/17 19:45 Ur Leukocyte Esterase LARGE (NEGATIVE) H 04/01/17 19:45 Urine RBC 5-10 /hpf (0-5) H 04/01/17 19:45 Urine WBC >100 /hpf (0-5) H 04/01/17 19:45 Ur Epithelial Cells FEW /lpf (FEW) 04/01/17 19:45 Urine Bacteria MANY /hpf (NONE SEEN) 04/01/17 19:45 Salicylates < 25.0 mg/L (30.0-100.0) L 04/01/17 19:12 Urine Opiates Screen NEGATIVE (NEGATIVE) 04/01/17 19:45 Urine Methadone Screen NEGATIVE (NEGATIVE) 04/01/17 19:45 Acetaminophen < 10.0 ug/mL (10.0-30.0) L 04/01/17 19:12 Ur Barbiturates Screen NEGATIVE (NEGATIVE) 04/01/17 19:45 Ur Tricyclics Screen NEGATIVE (NEGATIVE) 04/01/17 19:45 Ur Phencyclidine Scrn NEGATIVE (NEGATIVE) 04/01/17 19:45 Amphetamines Screen NEGATIVE (NEGATIVE) 04/01/17 19:45 U Methamphetamines Scrn NEGATIVE (NEGATIVE) 04/01/17 19:45 U Benzodiazepines Scrn NEGATIVE (NEGATIVE) 04/01/17 19:45 U Cocaine Metab Screen NEGATIVE (NEGATIVE) 04/01/17 19:45 U Cannabinoids Screen NEGATIVE (NEGATIVE) 04/01/17 19:45 Ethyl Alcohol < 10 mg/dL (0-10) 04/01/17 19:12 - Physical Exam Vitals and I&O: Vital Signs Temp 97.6 F 04/05/17 06:54 Pulse 72 04/05/17 06:54 Resp 18 04/05/17 06:54 BP 109/52 04/05/17 06:54 Pulse Ox 97 04/05/17 06:54 Intake & Output 04/04/17 04/05/17 04/05/17 18:59 06:59 18:59 Intake Total 960 Balance 960 Intake: Oral 960 Other: # Voids 4 # Bowel Movements 1 Active Medications: Current Medications Acetaminophen (Tylenol) 650 mg PO Q6HR PRN PRN Reason: MILD PAIN Stop: 05/31/17 23:20 Allopurinol (Zyloprim) 200 mg PO DAILY [facility] Stop: 06/01/17 08:59 Last Admin: 04/05/17 08:45 Dose: 200 mg Aspirin (Aspirin Chewable) 81 mg PO DAILY [facility] Stop: 06/01/17 08:59 Last Admin: 04/05/17 08:44 Dose: 81 mg Bisacodyl (Dulcolax 10 Mg Supp) 10 mg RC DAILY PRN PRN Reason: CONSTIPATION NO BM 3 DAYS Stop: 05/31/17 23:20 Docusate Sodium (Colace) 100 mg PO DAILY [facility] Stop: 06/01/17 08:59 Last Admin: 04/05/17 08:44 Dose: 100 mg Ferrous Sulfate (Iron) 325 mg PO BID [facility] Stop: 06/01/17 08:59 Last Admin: 04/05/17 08:45 Dose: 325 mg Finasteride (Proscar) 5 mg PO DAILY [facility] PRN Reason: Protocol Stop: 06/01/17 08:59 Last Admin: 04/05/17 08:44 Dose: 5 mg Lactobacillus Rhamnosus (Culturelle) 1 each PO DAILY [facility] Stop: 06/01/17 15:59 Last Admin: 04/05/17 08:44 Dose: 1 each Levofloxacin (Levaquin) 500 mg PO DAILY [facility] Stop: 04/11/17 09:01 Last Admin: 04/05/17 08:45 Dose: 500 mg Lorazepam (Ativan) 0.5 mg PO Q4HR PRN; Protocol PRN Reason: Anxiety Stop: 05/01/17 23:12 Memantine (Namenda) 5 mg PO HS [facility] Stop: 06/01/17 20:59 Last Admin: 04/04/17 20:49 Dose: 5 mg Miscellaneous (Probiotic Screen) 1 ea MC PRN PRN PRN Reason: PROTOCOL Stop: 06/01/17 15:28 Multivitamins/Vitamin C (Theragran) 1 tab PO DAILY [facility] Stop: 06/01/17 08:59 Last Admin: 04/05/17 08:44 Dose: 1 tab Quetiapine Fumarate (Seroquel) 25 mg PO HS [facility]K PRN Reason: Protocol Stop: 06/01/17 20:59 Last Admin: 04/04/17 20:50 Dose: 25 mg Senna (Senna) 8.6 mg PO DAILY [facility] Stop: 06/01/17 08:59 Last Admin: 04/05/17 08:44 Dose: 8.6 mg Trimethoprim/Sulfamethoxazole (Bactrim Ds) 1 tab PO BID [facility] Stop: 06/01/17 16:59 Last Admin: 04/05/17 08:45 Dose: 1 tab Valproate Sodium (Depakene) 250 mg PO Q12HR [facility]K PRN Reason: Protocol Stop: 06/01/17 20:59 Last Admin: 04/05/17 08:44 Dose: 250 mg Zolpidem Tartrate (Ambien) 5 mg PO HS PRN PRN Reason: Insomnia Stop: 05/31/17 23:12 General: Alert, Other (Confused) HEENT: Atraumatic Neck: Supple Cardiovascular: Regular rate Lungs: Clear to auscultation Abdomen: Bowel sounds, Soft Extremities: Other (No edema) Neurological: Other (Non ambulatory) Skin: Other (Warm and dry) Assessment/Plan - Problem List Patient Problems: All Active Problems INCREASED CONFUSION AND AGITATION (Acute) - Assessment Assessment: Current Active Problems Problem Status Onset INCREASED CONFUSION AND AGITATION Acute Patient is awake, alert, confused, not oriented. WBC improving, Creatinine increasing. Dx: Increased in agitation, UTI, Gout, BPH, Dementia, - Plan Plan: Patient is follow by psychiatry. on Levaquin and Bactrim. will continue to monitor. Nutritional Asmnt/Malnutr-PDOC - Dietary Evaluation Malnutrition Findings (Please click <Entered> for more info): Nutritional Asmnt/Malnutrition Start: 04/03/17 13: 09 Text: Status: Complete Freq: Document 04/03/17 13:09 [email or web address] (Rec: 04/03/17 13:17 [email or web address]) Nutritional Asmnt/Malnutrition Patient General Information Nutritional Screening Moderate Risk Diagnosis increased in agitaion, UTI, Gout, BPH, dementia Subjective Information RN reported pt had poor PO intake and requested RD to visit pt. Pt seen lying in bed , awake. confused, not ablt to obtain nutrition hx. Per note , PO intake was 0-25% by eating self yesterday 04/02. Spoke to nurse, pt consumed 100% of breakfast this morning with feeding. Visited again during lunch time, pt was saying no and refesed food. Asked STRANNER to try later and feed slowly. Current Diet Order/ Nutrition Support [facility] soft Pertinent Medications colace, Iron, culturelle, Levauin, MVI, Vit C, Seroquel, Senna Pertinent Labs 04/01 BUN 45H, Cr 1.4H, Alb 3. 7L, Glu 98. A1C 5.2 Nutritional Hx/Data Height 1.68 m Height (Calculated Centimeters) 167.6 Current Weight (lbs) 65.771 kg Weight (Calculated Kilograms) 65.8 Weight (Calculated Grams) 56261.9 [place] Body Weight 142 % [place] Body Weight 102 Body Mass Index (BMI) 23.3 Weight Status Approriate GI Symptoms GI Symptoms None Last BM 04/03 Difficult in: None Food Allergies No Current %PO Poor (25-49%) Estimated Nutritional Goals BEE in Kcals: Using Current wt Calories/Kcals/Kg 25-30 Kcals Calculated Protein: Using Current wt Protein g/k.8-1 Protein Calculated 53-66 Fluid: ml 6212-5114 Nutritional Problem 1. Problem Problem inadequant oral food intake Etiology ? dementia, ? confused, ? poor appetite Signs/Symptoms: PO intake 0-25% Malnutrition Alert Protein-Calorie Malnutrition N/A Is there a minimum of two criteria No selected? Query Text:Check all the applicable criteria. A minimum of two criteria are recommended for diagnosis of either severe or non-severe malnutrition. Intervention/Recommendation Comments 1. Continue with [facility] soft diet as tolerated 2. Recommend to feed pt slowly , provide cues to eat 3. Monitor appetite, PO intake , wt weekly, skin integrity 4. F/U as high risk in 2-3 days, 04/05-04/06 Expected Outcomes/Goals Expected Outcomes/Goals 1. PO intake to improve at least 50% to meet nutritional needs 2. wt stablility, skin to remain intact
--- NOTE | 2017-04-06 17:46 | Discharge Summary ---
DATE OF DISCHARGE: 04/05/2017 IDENTIFYING DATA: The patient is an 87-year-old male admitted here from [facility]. JUSTIFICATION OF HOSPITALIZATION: The patient admitted on a voluntary basis in view of confusion and acute agitation. CHIEF COMPLAINT: "I don't know. I am not feeling well. DIAGNOSES AT THE TIME OF ADMISSION: 1A. Psychotic disorder, not otherwise specified. 1B Dementia and behavioral change secondary to it. HISTORY OF PRESENT ILLNESS: Please refer to 04/02/2017 dictation of me. Physical examination was done by Dr. Hanna and is noted to be significant for acute urinary tract infection. HOSPITAL COURSE AND RESPONSE TO TREATMENT: The patient has been started on the Cipro and the patient is closely monitored, but patient's condition was not coming under control and Dr. Hanna decided that the patient needs to be on IV antibiotics and the patient hence has been transferred to the medical unit for further followup. MENTAL STATUS EXAMINATION: At the time of discharge, patient's mood is noted to be still irritable. Affect is constricted. Insight and judgment at this time are noted to be still impaired. Impulse control seems to be fair. The patient continues to be paranoid at the time of the discharge. CONDITION: At the time of discharge noted to be stable. DIAGNOSES AT THE TIME OF DISCHARGE: AXIS IA: Psychotic disorder, not otherwise specified. AXIS IB: Dementia and behavioral change secondary to it. AFTERCARE PLAN: The patient is discharged to be followed up on an outpatient basis. PROGNOSIS: At time discharge noted to be fair with the treatment once the medical condition is stabilized. JOB# [id number]
== END 2017-04-05 14:46 | DRG 885 ==
LOC: ER 18:22 → GERO 21:30
PROVIDERS: ADMIT Psychiatry & Neurology Psychiatry; ATTEND Psychiatry & Neurology Psychiatry
DX: F29 Unspecified psychosis not due to a substance or known physiological condition (principal); F03.91 Unspecified dementia, unspecified severity, with behavioral disturbance; N39.0 Urinary tract infection, site not specified; N40.0 Benign prostatic hyperplasia without lower urinary tract symptoms; M19.90 Unspecified osteoarthritis, unspecified site; M10.9 Gout, unspecified; F31.9 Bipolar disorder, unspecified; Z79.82 Long term (current) use of aspirin; Z82.49 Family history of ischemic heart disease and other diseases of the circulatory system
CPT/HCPCS: 36415-UA; 71010-TC; 80053-TC; 80061-TC; 80307; 80320-TC; 80329-TC; 81001-TC; 83036-90; 83605; 84443-TC; 85007-TC; 85027-TC; 86592-TC; 87086-90; 93005; Z7610

== ENCOUNTER 2017-04-05 14:50 | Inpatient (IN) | payer MEDICARE, MEDICAID ==
[2017-04-05 15:08] VITALS: BP 109/54
[2017-04-05] MEDS: Ferrous Sulfate 325 MG TAB PO SCH (17:21)
[2017-04-05] MEDS: Sodium Chloride 0.9% 1,000 ML IV SCH (18:09)
--- NOTE | 2017-04-06 02:03 | Progress Notes ---
DATE: 04/05/2017 Staff was spoken to. The patient is interviewed. Mood is noted to be irritable. Affect is constricted. Coping skills are noted to be poor. No side effects to the medications are noted. Insight and judgment are still impaired. Coping skills are noted to be poor. The patient is still confused and getting agitated. The patient is currently on Seroquel. PLAN: To continue the patient with the supportive therapy. I encouraged the patient to verbalize the concerns rather than to act out. JOB# [id number]
[2017-04-06 06:28] LABS: HEMOGLOBIN 11.9 gm/dL (12-16); MEAN CELL VOLUME 94.8 fl (80-99); MEAN CORPUSCULAR HEMOGLOBIN 30.7 pg (27.0-31.0); MEAN CORPUSCULAR HGB CONC 32.4 pg (28.0-36.0); NEUTROPHILE ABSOLUTE 5.5 Th/cmm (1.8-8.0); RED BLOOD COUNT 3.86 Mil/cmm (3.80-5.80); RED CELL DISTRIBUTION WIDTH 17.1 % (11.5-20.0)
[2017-04-06 06:42] LABS: ALB/GLOB RATIO 0.9 (1.0-1.8); ALKALINE PHOSPHATASE 67 U/L (34-104); ANION GAP 9.6 (7.0-16.0); BILIRUBIN,TOTAL 0.5 mg/dL (0.3-1.0); BUN - UREA NITROGEN 34 mg/dL (7-25); CALCIUM SERUM 8.5 mg/dL (8.6-10.3); CARBON DIOXIDE 24.6 mEq/L (21.0-31.0); CHLORIDE 105 mEq/L (98-107); CREATININE - SERUM 1.7 mg/dL (0.7-1.3); POTASSIUM SERUM 4.2 mEq/L (3.5-5.1); SGOT 16 U/L (13-39); SGPT/ALT 11 U/L (7-52); SODIUM SERUM 135 mEq/L (136-145)
[2017-04-06 06:45] LABS: GLUCOSE 88 mg/dL (70-105)
[2017-04-06 06:58] LABS: PLATELET COUNT 95 Th/cmm (150-400)
[2017-04-06 07:04] LABS: HEMATOCRIT 36.6 % (41.0-60); WHITE BLOOD COUNT 12.1 Th/cmm (4.8-10.8)
[2017-04-06] MEDS: Ferrous Sulfate 325 MG TAB PO SCH ×2 (09:55→16:20)
[2017-04-06] MEDS: Multivitamin Tab PO SCH (09:55)
[2017-04-06] MEDS: Aspirin 81mg Chewable Tab PO SCH (09:55)
--- NOTE | 2017-04-06 10:22 | History and Physical ---
History of Present Illness - HPI Chief Complaint: WBC increased HPI: Patient came to [facility] unit due to increased in agitation in ER was found elevated WBC due to UTI, he was started in AB but did not responded and He had DORITA reazon why was transfered to Med/Surg unit for IV AB and consult with Nephro. 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 GI: Report: No Pertinent Hx Psych: Report: Psychosis Musculoskeletal: Report: Osteoarthritis Rheumatologic: Report: No pertinent Hx Infectious Disease: Report: No Pertinent Hx Renal/: Report: Acute Renal Failure Endocrine: Report: No Pertinent Hx Dermatology: Report: No Pertinent Hx Family Medical History - Family Member Mother History Unknown: Yes Ethnicity: Unknown Living Status: Unknown Social History Smoke: No Alcohol: None Drugs: None Lives: Care Home Domestic Violence: Negative - Medications Home Medications: Home Medication Medication Instructions Recorded Type Acetaminophen [Tylenol] 650 mg PO Q6HR PRN 04/01/17 History Allopurinol 200 mg PO DAILY 04/01/17 History Aspirin [Aspirin Chewable] 81 mg PO DAILY 04/01/17 History Bisacodyl [Dulcolax 10 Mg Supp] 10 mg RC DAILY PRN 04/01/17 History Docusate Sodium [Colace] 100 mg PO DAILY 04/01/17 History Ferrous Sulfate [Iron] 1 tab PO BID 04/01/17 History Finasteride [Proscar*] 5 mg PO DAILY 04/01/17 History Memantine [Namenda] 5 mg PO HS 04/01/17 History QUEtiapine Fumarate [SEROquel] 25 mg PO Q12H 04/01/17 History Sennosides A and B [Senna] 8.6 mg PO DAILY 04/01/17 History Lactobacillus Rhamnosus 1 each PO DAILY cap.sprink 04/05/17 Rx [Culturelle] Levofloxacin [Levaquin] 500 mg PO DAILY tab 04/05/17 Rx Lorazepam [Ativan] 0.5 mg PO Q4HR PRN tab 04/05/17 Rx Multivitamin [Theragran] 1 tab PO DAILY tab 04/05/17 Rx Valproic Acid [Depakene] 250 mg PO Q12HR udc 04/05/17 Rx Zolpidem Tartrate [Ambien] 5 mg PO HS PRN tab 04/05/17 Rx - Allergies Allergies/Adverse Reactions: Allergies Allergy/AdvReac Type Severity Reaction Status Date / Time No Known Allergies Allergy Verified 04/01/17 18:28 Review of Systems - Review of Systems Constitutional: Report: No Significant Eyes: Report: No Significant ENT: Report: No Significant Respiratory: Report: No Significant Cardiovascular: Report: No Significant Gastrointestinal: Report: No Significant Genitourinary: Report: No Significant Musculoskeletal: Report: No Significant Skin: Report: No Significant Neurological: Report: Weakness Physical Exam - Physical Exam HEENT: Report: Ears Nose Throat within normal limits Neck: Report: Within normal limits Cardiovascular Systems: Report: Regular, Rate and Rhythm Respiratory: Report: Breath Sounds are within normal limits Abdomen: Report: Non-tender to palpation Back: Report: Inspection of back is within normal limits. Extremities: Report: Non-tender to palpation. Skin: Report: Color of skin is within normal limits, Warm, Dry Neuro/Psych: Report: Disoriented to name time or place - Lab Results All Lab Results last 24 hours: Laboratory Results - last 24 hr 04/06/17 04/06/17 06:10 06:10 WBC 12.1 H D RBC 3.86 Hgb 11.9 L Hct 36.6 L D MCV 94.8 MCH 30.7 MCHC Differential 32.4 RDW 17.1 Plt Count 95 L MPV 9.0 Sodium 135 L Potassium 4.2 Chloride 105 Carbon Dioxide 24.6 Anion Gap 9.6 BUN 34 H Creatinine 1.7 H Est GFR ( Amer) TNP Est GFR (Non-Af Amer) TNP BUN/Creatinine Ratio 20.0 Glucose 88 D Calcium 8.5 L Total Bilirubin 0.5 AST 16 ALT 11 Alkaline Phosphatase 67 Total Protein 6.2 Albumin 3.0 L Globulin 3.2 Albumin/Globulin Ratio 0.9 L - Assessment Assessment: Patient is awake, alert, calm, confused, not oriented. Dx: DORITA, UTI, Increased in agitation, Gout, BPH, Dementia - Plan Plan: Patient in Sozyn IV, NS, continue with SNF meds. Psychiatry and nephro consult requested.
[2017-04-06] MEDS: Lactobacillus Rhamnosus 10 Billion CFU Capsule PO SCH (12:25)
[2017-04-06] MEDS: Sodium Chloride 0.9% 1,000 ML IV SCH (12:25)
--- NOTE | 2017-04-06 19:18 | Progress Notes ---
DATE: 04/06/2017 PSYCHIATRIC PROGRESS NOTE Staff was spoken to. The patient is interviewed. The patient has been transferred to the Med-Surg Unit following acute urinary tract infection. The patient is on IV antibiotics at this time. The patient is being followed up by me for continuation of the psychiatric medications. The patient continues to be confused and paranoid. The patient is currently on 25 mg of Seroquel along with the valproic acid 250 mg twice a day and the patient is going to be continued with these medications. The patient is going to be followed up with the supportive therapy. JOB# [id number]
[2017-04-07] MEDS: Sodium Chloride 0.9% 1,000 ML IV SCH ×3 (00:20→22:25)
[2017-04-07 05:29] LABS: HEMOGLOBIN 11.1 gm/dL (12-16); MEAN CELL VOLUME 95.1 fl (80-99); MEAN PLATELET VOLUME 9.5 fl; NEUTROPHILE ABSOLUTE 4.3 Th/cmm (1.8-8.0); WHITE BLOOD COUNT 10.6 Th/cmm (4.8-10.8)
[2017-04-07 05:58] LABS: ALB/GLOB RATIO 0.9 (1.0-1.8); ALKALINE PHOSPHATASE 59 U/L (34-104); ANION GAP 7.8 (7.0-16.0); BILIRUBIN,TOTAL 0.5 mg/dL (0.3-1.0); BUN - UREA NITROGEN 27 mg/dL (7-25); BUN/CREATININE RATIO 16.9; CALCIUM SERUM 8.1 mg/dL (8.6-10.3); CHLORIDE 113 mEq/L (98-107); CREATININE - SERUM 1.6 mg/dL (0.7-1.3); GLUCOSE 82 mg/dL (70-105); MAGNESIUM 2.2 mg/dL (1.9-2.7); POTASSIUM SERUM 3.8 mEq/L (3.5-5.1); SGOT 14 U/L (13-39); SGPT/ALT 10 U/L (7-52); SODIUM SERUM 142 mEq/L (136-145); URIC ACID 4.6 mg/dL (4.4-7.6)
[2017-04-07 08:14] LABS: PLATELET COUNT 80 Th/cmm (150-400); RED BLOOD COUNT 3.53 Mil/cmm (3.80-5.80)
[2017-04-07 08:15] LABS: HEMATOCRIT 33.6 % (41.0-60); MEAN CORPUSCULAR HEMOGLOBIN 31.4 pg (27.0-31.0)
[2017-04-07 09:11] LABS: MICROALBUMIN RANDOM RUINE 37.1 ug/mL (Not Estab.)
[2017-04-07] MEDS: Aspirin 81mg Chewable Tab PO SCH ×2 (09:13→09:18)
[2017-04-07] MEDS: Multivitamin Tab PO SCH ×2 (09:13→09:18)
[2017-04-07] MEDS: Ferrous Sulfate 325 MG TAB PO SCH ×3 (09:13→16:26)
[2017-04-07] MEDS: Lactobacillus Rhamnosus 10 Billion CFU Capsule PO SCH ×2 (09:13→09:18)
--- NOTE | 2017-04-07 12:27 | General Progress Note ---
Subjective - Review of Systems Service Date: 04/07/17 Subjective: patient is confused Objective - Results Result Diagrams: 04/07/17 05:10 04/07/17 05:10 Recent Labs: Laboratory Last Values WBC 10.6 Th/cmm (4.8-10.8) 04/07/17 05:10 RBC 3.53 Mil/cmm (3.80-5.80) L 04/07/17 05:10 Hgb 11.1 gm/dL (12-16) L 04/07/17 05:10 Hct 33.6 % (41.0-60) L 04/07/17 05:10 MCV 95.1 fl (80-99) 04/07/17 05:10 MCH 31.4 pg (27.0-31.0) H 04/07/17 05:10 MCHC Differential 33.0 pg (28.0-36.0) 04/07/17 05:10 RDW 17.0 % (11.5-20.0) 04/07/17 05:10 Plt Count 80 Th/cmm (150-400) L 04/07/17 05:10 MPV 9.5 fl 04/07/17 05:10 Sodium 142 mEq/L (136-145) 04/07/17 05:10 Potassium 3.8 mEq/L (3.5-5.1) 04/07/17 05:10 Chloride 113 mEq/L (98-107) H 04/07/17 05:10 Carbon Dioxide 25.0 mEq/L (21.0-31.0) 04/07/17 05:10 Anion Gap 7.8 (7.0-16.0) 04/07/17 05:10 BUN 27 mg/dL (7-25) H 04/07/17 05:10 Creatinine 1.6 mg/dL (0.7-1.3) H 04/07/17 05:10 Est GFR ( Amer) TNP 04/07/17 05:10 Est GFR (Non-Af Amer) TNP 04/07/17 05:10 BUN/Creatinine Ratio 16.9 04/07/17 05:10 Glucose 82 mg/dL (70-105) 04/07/17 05:10 Uric Acid 4.6 mg/dL (4.4-7.6) 04/07/17 05:10 Calcium 8.1 mg/dL (8.6-10.3) L 04/07/17 05:10 Phosphorus 3.0 mg/dL (2.5-5.0) 04/07/17 05:10 Magnesium 2.2 mg/dL (1.9-2.7) 04/07/17 05:10 Total Bilirubin 0.5 mg/dL (0.3-1.0) 04/07/17 05:10 AST 14 U/L (13-39) 04/07/17 05:10 ALT 10 U/L (7-52) 04/07/17 05:10 Alkaline Phosphatase 59 U/L (34-104) 04/07/17 05:10 Total Protein 6.0 gm/dL (6.0-8.3) 04/07/17 05:10 Albumin 2.9 gm/dL (4.2-5.5) L 04/07/17 05:10 Globulin 3.1 gm/dL 04/07/17 05:10 Albumin/Globulin Ratio 0.9 (1.0-1.8) L 04/07/17 05:10 Urine Creatinine 101.9 mg/dl (Not Estab.) 04/06/17 14:30 Urine Microalbumin 37.1 ug/mL (Not Estab.) 04/06/17 14:30 Microalb/Creat Ratio 36.4 04/06/17 14:30 - Physical Exam Vitals and I&O: Vital Signs Temp 96.5 F 04/07/17 08:00 Pulse 60 04/07/17 08:00 Resp 16 04/07/17 08:00 BP 105/54 04/07/17 08:00 Pulse Ox 98 04/07/17 08:00 Intake & Output 04/06/17 04/07/17 04/07/17 18:59 06:59 18:59 Intake Total 650 304 9010 Output Total 400 Balance 308 763 0418 Weight (lbs) 51.71 kg 51.71 kg Intake: Intake, IV Amount 049 270 0993 Piperacillin Sodium/ 100 100 Tazobact 3.375 gm In Sodium Chloride 0.9% 50 ml @ 100 mls/hr IV Q6HR [facility] Rx#:[id number] Sodium Chloride 0.9% 1, 762 792 7498 000 ml @ 90 mls/hr IV . Q11H7M [facility] Rx#:[id number] Oral 20 Output: Urine 400 Other: # Voids 2 # Bowel Movements 0 Active Medications: Current Medications Acetaminophen (Tylenol) 650 mg PO Q6HR PRN PRN Reason: MILD PAIN Stop: 06/04/17 16:18 Aspirin (Aspirin Chewable) 81 mg PO DAILY [facility] Stop: 06/05/17 08:59 Last Admin: 04/07/17 09:18 Dose: Not Given Bisacodyl (Dulcolax 10 Mg Supp) 10 mg RC DAILY PRN PRN Reason: CONSTIPATION NO BM 3 DAYS Stop: 06/04/17 16:18 Ferrous Sulfate (Iron) 325 mg PO BID [facility] Stop: 06/04/17 16:59 Last Admin: 04/07/17 09:17 Dose: Not Given Finasteride (Proscar) 5 mg PO DAILY MAK PRN Reason: Protocol Stop: 06/05/17 08:59 Last Admin: 04/07/17 09:18 Dose: Not Given Piperacillin Sod/Tazobactam (Sod 3.375 gm/ Sodium Chloride) 50 mls @ 100 mls/ hr IV Q6HR [facility] Stop: 06/04/17 17:59 Last Admin: 04/07/17 11:58 Dose: 100 mls/hr Sodium Chloride (Nacl 0.9%) 1,000 mls @ 90 mls/hr IV .Q11H7M [facility] Stop: 06/04/17 15:44 Last Admin: 04/07/17 11:58 Dose: 90 mls/hr Lactobacillus Rhamnosus (Culturelle) 1 each PO DAILY [facility] Stop: 06/05/17 08:59 Last Admin: 04/07/17 09:18 Dose: Not Given Lorazepam (Ativan) 0.5 mg PO Q4HR PRN; Protocol PRN Reason: Anxiety Stop: 06/04/17 16:18 Memantine (Namenda) 5 mg PO HS [facility] Stop: 06/04/17 20:59 Last Admin: 04/06/17 20:39 Dose: 5 mg Multivitamins/Vitamin C (Theragran) 1 tab PO DAILY [facility] Stop: 06/05/17 08:59 Last Admin: 04/07/17 09:18 Dose: Not Given Mupirocin (Bactroban Oint) 1 appl TP BID [facility] Stop: 06/06/17 16:59 Quetiapine Fumarate (Seroquel) 25 mg PO Q12HR MAK PRN Reason: Protocol Stop: 06/04/17 16:29 Last Admin: 04/07/17 09:18 Dose: Not Given Valproate Sodium (Depakene) 250 mg PO Q12HR MAK PRN Reason: Protocol Stop: 06/04/17 20:59 Last Admin: 04/07/17 09:18 Dose: Not Given Zolpidem Tartrate (Ambien) 5 mg PO HS PRN PRN Reason: Insomnia Stop: 06/04/17 16:18 General: Alert, Other (Confused) HEENT: Atraumatic Neck: Supple Cardiovascular: Regular rate Lungs: Clear to auscultation Abdomen: Bowel sounds, Soft Extremities: Other (No edema) Neurological: Other (Non ambulatory) Skin: Other (Warm and dry) Psych/Mental Status: Other (Awake, alert, calm, confused, not oriented) Assessment/Plan - Problem List Patient Problems: All Active Problems INCREASED CONFUSION AND AGITATION (Acute) - Assessment Assessment: Patient is awake, alert, calm, confused, not oriented. WBC and Kidney function improving. Dx: DORITA, UTI, Increased in agitation, Gout, BPH, Dementia - Plan Plan: Patient in Sozyn IV, NS, continue with SNF meds. Psychiatry and nephro consult requested.
--- NOTE | 2017-04-07 13:17 | General Progress Note ---
Subjective - Review of Systems Service Date: 04/07/17 Subjective: alert, eating lunch Objective - Results Result Diagrams: 04/07/17 05:10 04/07/17 05:10 Recent Labs: Laboratory Last Values WBC 10.6 Th/cmm (4.8-10.8) 04/07/17 05:10 RBC 3.53 Mil/cmm (3.80-5.80) L 04/07/17 05:10 Hgb 11.1 gm/dL (12-16) L 04/07/17 05:10 Hct 33.6 % (41.0-60) L 04/07/17 05:10 MCV 95.1 fl (80-99) 04/07/17 05:10 MCH 31.4 pg (27.0-31.0) H 04/07/17 05:10 MCHC Differential 33.0 pg (28.0-36.0) 04/07/17 05:10 RDW 17.0 % (11.5-20.0) 04/07/17 05:10 Plt Count 80 Th/cmm (150-400) L 04/07/17 05:10 MPV 9.5 fl 04/07/17 05:10 Sodium 142 mEq/L (136-145) 04/07/17 05:10 Potassium 3.8 mEq/L (3.5-5.1) 04/07/17 05:10 Chloride 113 mEq/L (98-107) H 04/07/17 05:10 Carbon Dioxide 25.0 mEq/L (21.0-31.0) 04/07/17 05:10 Anion Gap 7.8 (7.0-16.0) 04/07/17 05:10 BUN 27 mg/dL (7-25) H 04/07/17 05:10 Creatinine 1.6 mg/dL (0.7-1.3) H 04/07/17 05:10 Est GFR ( Amer) TNP 04/07/17 05:10 Est GFR (Non-Af Amer) TNP 04/07/17 05:10 BUN/Creatinine Ratio 16.9 04/07/17 05:10 Glucose 82 mg/dL (70-105) 04/07/17 05:10 Uric Acid 4.6 mg/dL (4.4-7.6) 04/07/17 05:10 Calcium 8.1 mg/dL (8.6-10.3) L 04/07/17 05:10 Phosphorus 3.0 mg/dL (2.5-5.0) 04/07/17 05:10 Magnesium 2.2 mg/dL (1.9-2.7) 04/07/17 05:10 Total Bilirubin 0.5 mg/dL (0.3-1.0) 04/07/17 05:10 AST 14 U/L (13-39) 04/07/17 05:10 ALT 10 U/L (7-52) 04/07/17 05:10 Alkaline Phosphatase 59 U/L (34-104) 04/07/17 05:10 Total Protein 6.0 gm/dL (6.0-8.3) 04/07/17 05:10 Albumin 2.9 gm/dL (4.2-5.5) L 04/07/17 05:10 Globulin 3.1 gm/dL 04/07/17 05:10 Albumin/Globulin Ratio 0.9 (1.0-1.8) L 04/07/17 05:10 Urine Creatinine 101.9 mg/dl (Not Estab.) 04/06/17 14:30 Urine Microalbumin 37.1 ug/mL (Not Estab.) 04/06/17 14:30 Microalb/Creat Ratio 36.4 04/06/17 14:30 - Physical Exam Vitals and I&O: Vital Signs Temp 96.5 F 04/07/17 08:00 Pulse 60 04/07/17 08:00 Resp 16 04/07/17 08:00 BP 105/54 04/07/17 08:00 Pulse Ox 98 04/07/17 08:00 Intake & Output 04/06/17 04/07/17 04/07/17 18:59 06:59 18:59 Intake Total 901 551 2236 Output Total 400 Balance 635 918 0383 Weight (lbs) 51.71 kg 51.71 kg Intake: Intake, IV Amount 096 190 4143 Piperacillin Sodium/ 100 100 Tazobact 3.375 gm In Sodium Chloride 0.9% 50 ml @ 100 mls/hr IV Q6HR [facility] Rx#:[id number] Sodium Chloride 0.9% 1, 327 286 0230 000 ml @ 90 mls/hr IV . Q11H7M [facility] Rx#:[id number] Oral 20 Output: Urine 400 Other: # Voids 2 # Bowel Movements 0 Active Medications: Current Medications Acetaminophen (Tylenol) 650 mg PO Q6HR PRN PRN Reason: MILD PAIN Stop: 06/04/17 16:18 Aspirin (Aspirin Chewable) 81 mg PO DAILY [facility] Stop: 06/05/17 08:59 Last Admin: 04/07/17 09:18 Dose: Not Given Bisacodyl (Dulcolax 10 Mg Supp) 10 mg RC DAILY PRN PRN Reason: CONSTIPATION NO BM 3 DAYS Stop: 06/04/17 16:18 Ferrous Sulfate (Iron) 325 mg PO BID [facility] Stop: 06/04/17 16:59 Last Admin: 04/07/17 09:17 Dose: Not Given Finasteride (Proscar) 5 mg PO DAILY MAK PRN Reason: Protocol Stop: 06/05/17 08:59 Last Admin: 04/07/17 09:18 Dose: Not Given Piperacillin Sod/Tazobactam (Sod 3.375 gm/ Sodium Chloride) 50 mls @ 100 mls/ hr IV Q6HR [facility] Stop: 06/04/17 17:59 Last Admin: 04/07/17 11:58 Dose: 100 mls/hr Sodium Chloride (Nacl 0.9%) 1,000 mls @ 90 mls/hr IV .Q11H7M [facility] Stop: 06/04/17 15:44 Last Admin: 04/07/17 11:58 Dose: 90 mls/hr Lactobacillus Rhamnosus (Culturelle) 1 each PO DAILY [facility] Stop: 06/05/17 08:59 Last Admin: 04/07/17 09:18 Dose: Not Given Lorazepam (Ativan) 0.5 mg PO Q4HR PRN; Protocol PRN Reason: Anxiety Stop: 06/04/17 16:18 Memantine (Namenda) 5 mg PO HS [facility] Stop: 06/04/17 20:59 Last Admin: 04/06/17 20:39 Dose: 5 mg Multivitamins/Vitamin C (Theragran) 1 tab PO DAILY [facility] Stop: 06/05/17 08:59 Last Admin: 04/07/17 09:18 Dose: Not Given Mupirocin (Bactroban Oint) 1 appl TP BID [facility] Stop: 06/06/17 16:59 Quetiapine Fumarate (Seroquel) 25 mg PO Q12HR MAK PRN Reason: Protocol Stop: 06/04/17 16:29 Last Admin: 04/07/17 09:18 Dose: Not Given Valproate Sodium (Depakene) 250 mg PO Q12HR MAK PRN Reason: Protocol Stop: 06/04/17 20:59 Last Admin: 04/07/17 09:18 Dose: Not Given Zolpidem Tartrate (Ambien) 5 mg PO HS PRN PRN Reason: Insomnia Stop: 06/04/17 16:18 General: Alert, No acute distress, Other (Confused) HEENT: Atraumatic, PERRLA, EOMI, Mucous membr. moist/pink Neck: Supple, +2 carotid pulse wo bruit Cardiovascular: Regular rate, Normal S1, Normal S2 Lungs: Clear to auscultation Abdomen: Bowel sounds, Soft Extremities: Other (No edema), no Edema Neurological: Sensation intact, Other (Non ambulatory) Skin: Other (Warm and dry), no Rash Psych/Mental Status: Other (Awake, alert, calm, confused, not oriented) Assessment/Plan - Problem List Patient Problems: All Active Problems INCREASED CONFUSION AND AGITATION (Acute) - Assessment Assessment: ODRITA vs. CKD Gout BPH Alzh Dementia w/ beh disturbance Acute Psychosis Cx UTI - Plan Plan: Lab - Result Diagrams 04/07/17 05:10 04/07/17 05:10 Current Medications Acetaminophen (Tylenol) 650 mg PO Q6HR PRN PRN Reason: MILD PAIN Stop: 06/04/17 16:18 Aspirin (Aspirin Chewable) 81 mg PO DAILY [facility] Stop: 06/05/17 08:59 Last Admin: 04/07/17 09:18 Dose: Not Given Bisacodyl (Dulcolax 10 Mg Supp) 10 mg RC DAILY PRN PRN Reason: CONSTIPATION NO BM 3 DAYS Stop: 06/04/17 16:18 Ferrous Sulfate (Iron) 325 mg PO BID [facility] Stop: 06/04/17 16:59 Last Admin: 04/07/17 09:17 Dose: Not Given Finasteride (Proscar) 5 mg PO DAILY MAK PRN Reason: Protocol Stop: 06/05/17 08:59 Last Admin: 04/07/17 09:18 Dose: Not Given Piperacillin Sod/Tazobactam (Sod 3.375 gm/ Sodium Chloride) 50 mls @ 100 mls/ hr IV Q6HR [facility] Stop: 06/04/17 17:59 Last Admin: 04/07/17 11:58 Dose: 100 mls/hr Sodium Chloride (Nacl 0.9%) 1,000 mls @ 90 mls/hr IV .Q11H7M [facility]K Stop: 06/04/17 15:44 Last Admin: 04/07/17 11:58 Dose: 90 mls/hr Lactobacillus Rhamnosus (Culturelle) 1 each PO DAILY [facility]K Stop: 06/05/17 08:59 Last Admin: 04/07/17 09:18 Dose: Not Given Lorazepam (Ativan) 0.5 mg PO Q4HR PRN; Protocol PRN Reason: Anxiety Stop: 06/04/17 16:18 Memantine (Namenda) 5 mg PO HS MAK Stop: 06/04/17 20:59 Last Admin: 04/06/17 20:39 Dose: 5 mg Multivitamins/Vitamin C (Theragran) 1 tab PO DAILY [facility] Stop: 06/05/17 08:59 Last Admin: 04/07/17 09:18 Dose: Not Given Mupirocin (Bactroban Oint) 1 appl TP BID [facility] Stop: 06/06/17 16:59 Quetiapine Fumarate (Seroquel) 25 mg PO Q12HR MAK PRN Reason: Protocol Stop: 06/04/17 16:29 Last Admin: 04/07/17 09:18 Dose: Not Given Valproate Sodium (Depakene) 250 mg PO Q12HR MAK PRN Reason: Protocol Stop: 06/04/17 20:59 Last Admin: 04/07/17 09:18 Dose: Not Given Zolpidem Tartrate (Ambien) 5 mg PO HS PRN PRN Reason: Insomnia Stop: 06/04/17 16:18 Lab - Result Diagrams 04/07/17 05:10 04/07/17 05:10 Kidney fnc gradually improving w/ BUN/CR of 27/1.6 continue IVF f/u eletrolytes
--- NOTE | 2017-04-07 14:17 | Consultation ---
DATE OF CONSULTATION: 04/06/2017 REASON FOR CONSULTATION: Worsening kidney function, electrolyte imbalance, and fluid management. HISTORY OF PRESENT ILLNESS: This is an 87-year-old male with past medical history of psychosis who was transferred to [facility] from [facility] because of acute kidney injury. The patient was admitted to [facility] due to increased agitation/aggressive behavior. He was diagnosed to have a urinary tract infection. He was started on Zosyn; however, he also had elevated BUN and creatinine of 34/1.7. Thus, he was transferred to [facility] for further evaluation and management. He had no recent nausea and vomiting as well as diarrhea. PAST MEDICAL HISTORY: 1. Psychosis. 2. Gout. 3. BPH. 4. Dementia with behavioral disturbance. 5. Epilepsy. CURRENT MEDICATIONS: He is currently on acetaminophen, aspirin, Dulcolax, ferrous sulfate, finasteride, lactobacillus, lorazepam, Namenda, Theragran, Seroquel, Depakene, Ambien, and Zosyn. ALLERGIES: No known drug allergies. SOCIAL AND FAMILY HISTORY: I was not able to obtain directly from the patient because of his current mental status. REVIEW OF SYSTEMS: Again, I was unable to decipher from the patient because of his slow mental status and difficulty to express himself and respond. PHYSICAL EXAMINATION: GENERAL: The patient is drowsy at the present time, but arousable. VITAL SIGNS: His blood pressure is 105/53, pulse 67, temperature 97.2 degrees. SKIN: Poor turgor, warm. No rash, no jaundice appreciated. HEENT: Head normocephalic, atraumatic. Eyes: Extraocular muscles intact. Pupils equal, round, reactive to light and accommodation. Anicteric sclerae. Laureles conjunctivae. Nose: Midline nasal septum. Mouth: Dry mucosa with poor dentition. NECK: Supple, no adenopathy, no thyromegaly, no bruits. Trachea palpated in the midline. CHEST AND CARDIOVASCULAR: S1, S2. No rub, murmur or gallop appreciated. Point of maximal impulse fifth intercostal space, left midclavicular line. No abdominal or femoral bruits appreciated. LUNGS: Equal expansion. No use of accessory muscles. No supraclavicular retractions, decreased breath sounds, clear to auscultation without any wheeze. ABDOMEN: Mildly globular, soft. Positive for bowel sounds. No bruits, either diastolic or systolic. RECTAL: Lax sphincter tone. GENITOURINARY: Normal appearing male genitalia. MUSCULOSKELETAL: No effusions present in his joints, but unable to assess his range of motion because he was not cooperative. EXTREMITIES: No evidence of any edema, cyanosis, or clubbing with palpable femoral, but poorly palpable popliteal and dorsalis pedis pulses. NEUROLOGIC. As mentioned, the patient is a bit drowsy, unable to follow my neuro commands, so I was unable to pursue further my neuro exam. LABORATORY DATA: Did reveal sodium 135, potassium 4.2, chloride 105, bicarbonate 24, BUN 34, creatinine 1.7, glucose 88, calcium 8.5, albumin is 3. White count 12.1, hemoglobin 11.9, hematocrit 36.6, platelets 95. IMPRESSION: 1. Acute kidney injury versus chronic kidney disease. Acute kidney injury is possibly due to dehydration with poor oral intake. This was supported by physical exam, poor skin turgor with dry oral mucosa with depressed mental status. He also has ongoing UTI, which could give rise to acute interstitial nephritis. Chronic kidney disease, possibly due to history of obstructive uropathy or even chronic interstitial nephritis secondary to multiple nephrotoxic medications in the past. 2. Uncomplicated urinary tract infection. 3. Moderate malnutrition. 4. Acute psychosis with decompensation. 5. Gout. 6. BPH. 7. Dementia with behavioral disturbance. 8. Epilepsy. PLAN: 1. Continue with IV fluids. 2. Renal ultrasound. 3. Urine sodium, eosinophils and creatinine. 4. Urine microalbumin to creatinine ratio. 5. Follow up electrolytes as well as uric acid level. Thank you, Dr. Hanna for this consult. I will follow the patient closely with you. JOB# [id number]
[2017-04-08] MEDS: Sodium Chloride 0.9% 1,000 ML IV SCH (00:51)
[2017-04-08] MEDS: Aspirin 81mg Chewable Tab PO SCH ×2 (09:08→09:31)
[2017-04-08] MEDS: Multivitamin Tab PO SCH ×2 (09:08→09:31)
[2017-04-08] MEDS: Lactobacillus Rhamnosus 10 Billion CFU Capsule PO SCH ×2 (09:08→09:31)
[2017-04-08] MEDS: Ferrous Sulfate 325 MG TAB PO SCH ×3 (09:09→16:16)
[2017-04-08 12:35] LABS: HEMATOCRIT 40.4 % (41.0-60); MEAN CELL VOLUME 94.9 fl (80-99); MEAN CORPUSCULAR HEMOGLOBIN 32.4 pg (27.0-31.0); MEAN CORPUSCULAR HGB CONC 34.1 pg (28.0-36.0); MEAN PLATELET VOLUME 8.9 fl; NEUTROPHILE ABSOLUTE 5.8 Th/cmm (1.8-8.0); PLATELET COUNT 83 Th/cmm (150-400); RED BLOOD COUNT 4.26 Mil/cmm (3.80-5.80); WHITE BLOOD COUNT 12.5 Th/cmm (4.8-10.8)
[2017-04-08 12:37] LABS: ALKALINE PHOSPHATASE 72 U/L (34-104); ANION GAP 6.6 (7.0-16.0); BILIRUBIN,TOTAL 0.5 mg/dL (0.3-1.0); BUN - UREA NITROGEN 22 mg/dL (7-25); BUN/CREATININE RATIO 16.9; CARBON DIOXIDE 25.5 mEq/L (21.0-31.0); CHLORIDE 110 mEq/L (98-107); CREATININE - SERUM 1.3 mg/dL (0.7-1.3); GLUCOSE 106 mg/dL (70-105); POTASSIUM SERUM 4.1 mEq/L (3.5-5.1); SGOT 17 U/L (13-39); SGPT/ALT 11 U/L (7-52); SODIUM SERUM 138 mEq/L (136-145)
[2017-04-08 12:38] LABS: HEMOGLOBIN 13.8 gm/dL (12-16)
--- NOTE | 2017-04-08 12:49 | Discharge Summary ---
General Discharge Summary - Discharge Summary Date of Admission: 04/05/17 Admitting Diagnosis: DORITA, UTI, Increased in agitation, Dementia, BPH, Gout Patient Problems: All Active Problems INCREASED CONFUSION AND AGITATION (Acute) Discharge Date: 04/08/17 Discharge Diagnosis: DORITA, UTI, Dementia, increased in agitation, Gout, BPH Laboratory Findings: Laboratory Tests 04/06/17 04/06/17 04/06/17 06:10 06:10 14:30 WBC 12.1 H D RBC 3.86 Hgb 11.9 L Hct 36.6 L D MCV 94.8 MCH 30.7 MCHC Differential 32.4 RDW 17.1 Plt Count 95 L MPV 9.0 Sodium 135 L Potassium 4.2 Chloride 105 Carbon Dioxide 24.6 Anion Gap 9.6 BUN 34 H Creatinine 1.7 H Est GFR ( Amer) TNP Est GFR (Non-Af Amer) TNP BUN/Creatinine Ratio 20.0 Glucose 88 D Uric Acid Calcium 8.5 L Phosphorus Magnesium Total Bilirubin 0.5 AST 16 ALT 11 Alkaline Phosphatase 67 Total Protein 6.2 Albumin 3.0 L Globulin 3.2 Albumin/Globulin Ratio 0.9 L Urine Creatinine 101.9 Urine Microalbumin 37.1 Microalb/Creat Ratio 36.4 04/07/17 04/07/17 04/08/17 05:10 05:10 12:15 WBC 10.6 12.5 H RBC 3.53 L 4.26 Hgb 11.1 L 13.8 D Hct 33.6 L 40.4 L D MCV 95.1 94.9 MCH 31.4 H 32.4 H MCHC Differential 33.0 34.1 RDW 17.0 17.0 Plt Count 80 L 83 L MPV 9.5 8.9 Sodium 142 Potassium 3.8 Chloride 113 H Carbon Dioxide 25.0 Anion Gap 7.8 BUN 27 H Creatinine 1.6 H Est GFR ( Amer) TNP Est GFR (Non-Af Amer) TNP BUN/Creatinine Ratio 16.9 Glucose 82 Uric Acid 4.6 Calcium 8.1 L Phosphorus 3.0 Magnesium 2.2 Total Bilirubin 0.5 AST 14 ALT 10 Alkaline Phosphatase 59 Total Protein 6.0 Albumin 2.9 L Globulin 3.1 Albumin/Globulin Ratio 0.9 L Urine Creatinine Urine Microalbumin Microalb/Creat Ratio 04/08/17 12:15 WBC RBC Hgb Hct MCV MCH MCHC Differential RDW Plt Count MPV Sodium 138 Potassium 4.1 Chloride 110 H Carbon Dioxide 25.5 Anion Gap 6.6 L BUN 22 Creatinine 1.3 Est GFR ( Amer) TNP Est GFR (Non-Af Amer) TNP BUN/Creatinine Ratio 16.9 Glucose 106 H Uric Acid Calcium 9.0 Phosphorus Magnesium Total Bilirubin 0.5 AST 17 ALT 11 Alkaline Phosphatase 72 Total Protein 7.0 Albumin 3.5 L Globulin 3.5 Albumin/Globulin Ratio 1.0 Urine Creatinine Urine Microalbumin Microalb/Creat Ratio Hospital Course: Patient was admitted to [facility] unit and transferred to Med/Surg due to elevated WBC and UTI, He was started in IV, NS, AB, consult with Nephro and Psychiatry were done and recomendations were follow. Treatment: IV NS, AB and SNF meds. Disposition: Discharge/Transfered to SNF Home Medications: Home Medication Medication Instructions Recorded Type Acetaminophen [Tylenol] 650 mg PO Q6HR PRN 04/01/17 History Allopurinol 200 mg PO DAILY 04/01/17 History Aspirin [Aspirin Chewable] 81 mg PO DAILY 04/01/17 History Bisacodyl [Dulcolax 10 Mg Supp] 10 mg RC DAILY PRN 04/01/17 History Docusate Sodium [Colace] 100 mg PO DAILY 04/01/17 History Ferrous Sulfate [Iron] 1 tab PO BID 04/01/17 History Finasteride [Proscar*] 5 mg PO DAILY 04/01/17 History Memantine [Namenda] 5 mg PO HS 04/01/17 History QUEtiapine Fumarate [SEROquel] 25 mg PO Q12H 04/01/17 History Sennosides A and B [Senna] 8.6 mg PO DAILY 04/01/17 History Lactobacillus Rhamnosus 1 each PO DAILY cap.[email or web address] 04/05/17 Rx [Culturelle] Levofloxacin [Levaquin] 500 mg PO DAILY tab 04/05/17 Rx Lorazepam [Ativan] 0.5 mg PO Q4HR PRN tab 04/05/17 Rx Multivitamin [Theragran] 1 tab PO DAILY tab 04/05/17 Rx Valproic Acid [Depakene] 250 mg PO Q12HR udc 04/05/17 Rx Zolpidem Tartrate [Ambien] 5 mg PO HS PRN tab 04/05/17 Rx Inpatient Medications: Current Medications Acetaminophen (Tylenol) 650 mg PO Q6HR PRN PRN Reason: MILD PAIN Stop: 06/04/17 16:18 Aspirin (Aspirin Chewable) 81 mg PO DAILY [facility] Stop: 06/05/17 08:59 Last Admin: 04/08/17 09:31 Dose: Not Given Bisacodyl (Dulcolax 10 Mg Supp) 10 mg RC DAILY PRN PRN Reason: CONSTIPATION NO BM 3 DAYS Stop: 06/04/17 16:18 Doxycycline Hyclate (Vibramycin) 100 mg PO Q12HR MAK Stop: 06/07/17 20:59 Ferrous Sulfate (Iron) 325 mg PO BID [facility] Stop: 06/04/17 16:59 Last Admin: 04/08/17 09:31 Dose: Not Given Finasteride (Proscar) 5 mg PO DAILY MAK PRN Reason: Protocol Stop: 06/05/17 08:59 Last Admin: 04/08/17 09:31 Dose: Not Given Piperacillin Sod/Tazobactam (Sod 3.375 gm/ Sodium Chloride) 50 mls @ 100 mls/ hr IV Q6HR MAK Stop: 06/04/17 17:59 Last Admin: 04/08/17 07:25 Dose: Not Given Sodium Chloride (Nacl 0.9%) 1,000 mls @ 90 mls/hr IV .Q11H7M [facility] Stop: 06/04/17 15:44 Last Admin: 04/08/17 00:51 Dose: Not Given Lactobacillus Rhamnosus (Culturelle) 1 each PO DAILY [facility] Stop: 06/05/17 08:59 Last Admin: 04/08/17 09:31 Dose: Not Given Lorazepam (Ativan) 0.5 mg PO Q4HR PRN; Protocol PRN Reason: Anxiety Stop: 06/04/17 16:18 Memantine (Namenda) 5 mg PO HS [facility] Stop: 06/04/17 20:59 Last Admin: 04/07/17 22:00 Dose: 5 mg Multivitamins/Vitamin C (Theragran) 1 tab PO DAILY MAK Stop: 06/05/17 08:59 Last Admin: 04/08/17 09:31 Dose: Not Given Mupirocin (Bactroban Oint) 1 appl TP BID MAK Stop: 06/06/17 16:59 Last Admin: 04/08/17 09:31 Dose: Not Given Quetiapine Fumarate (Seroquel) 25 mg PO Q12HR MAK PRN Reason: Protocol Stop: 06/04/17 16:29 Last Admin: 04/08/17 09:31 Dose: Not Given Valproate Sodium (Depakene) 250 mg PO Q12HR MAK PRN Reason: Protocol Stop: 06/04/17 20:59 Last Admin: 04/08/17 09:31 Dose: Not Given Zolpidem Tartrate (Ambien) 5 mg PO HS PRN PRN Reason: Insomnia Stop: 06/04/17 16:18 Discharge Diet: 2 Gram Sodium Consulting Speciality: Other (PCP)
--- NOTE | 2017-04-08 13:02 | General Progress Note ---
Subjective - Review of Systems Service Date: 04/08/17 Subjective: alert, comfortable Objective - Results Result Diagrams: 04/08/17 12:15 04/08/17 12:15 Recent Labs: Laboratory Last Values WBC 12.5 Th/cmm (4.8-10.8) H 04/08/17 12:15 RBC 4.26 Mil/cmm (3.80-5.80) 04/08/17 12:15 Hgb 13.8 gm/dL (12-16) D 04/08/17 12:15 Hct 40.4 % (41.0-60) L D 04/08/17 12:15 MCV 94.9 fl (80-99) 04/08/17 12:15 MCH 32.4 pg (27.0-31.0) H 04/08/17 12:15 MCHC Differential 34.1 pg (28.0-36.0) 04/08/17 12:15 RDW 17.0 % (11.5-20.0) 04/08/17 12:15 Plt Count 83 Th/cmm (150-400) L 04/08/17 12:15 MPV 8.9 fl 04/08/17 12:15 Sodium 138 mEq/L (136-145) 04/08/17 12:15 Potassium 4.1 mEq/L (3.5-5.1) 04/08/17 12:15 Chloride 110 mEq/L (98-107) H 04/08/17 12:15 Carbon Dioxide 25.5 mEq/L (21.0-31.0) 04/08/17 12:15 Anion Gap 6.6 (7.0-16.0) L 04/08/17 12:15 BUN 22 mg/dL (7-25) 04/08/17 12:15 Creatinine 1.3 mg/dL (0.7-1.3) 04/08/17 12:15 Est GFR ( Amer) TNP 04/08/17 12:15 Est GFR (Non-Af Amer) TNP 04/08/17 12:15 BUN/Creatinine Ratio 16.9 04/08/17 12:15 Glucose 106 mg/dL (70-105) H 04/08/17 12:15 Uric Acid 4.6 mg/dL (4.4-7.6) 04/07/17 05:10 Calcium 9.0 mg/dL (8.6-10.3) 04/08/17 12:15 Phosphorus 3.0 mg/dL (2.5-5.0) 04/07/17 05:10 Magnesium 2.2 mg/dL (1.9-2.7) 04/07/17 05:10 Total Bilirubin 0.5 mg/dL (0.3-1.0) 04/08/17 12:15 AST 17 U/L (13-39) 04/08/17 12:15 ALT 11 U/L (7-52) 04/08/17 12:15 Alkaline Phosphatase 72 U/L (34-104) 04/08/17 12:15 Total Protein 7.0 gm/dL (6.0-8.3) 04/08/17 12:15 Albumin 3.5 gm/dL (4.2-5.5) L 04/08/17 12:15 Globulin 3.5 gm/dL 04/08/17 12:15 Albumin/Globulin Ratio 1.0 (1.0-1.8) 04/08/17 12:15 Urine Creatinine 101.9 mg/dl (Not Estab.) 04/06/17 14:30 Urine Microalbumin 37.1 ug/mL (Not Estab.) 04/06/17 14:30 Microalb/Creat Ratio 36.4 04/06/17 14:30 - Physical Exam Vitals and I&O: Vital Signs Temp 97.2 F 04/08/17 12:00 Pulse 94 04/08/17 12:00 Resp 18 04/08/17 12:00 BP 114/63 04/08/17 12:00 Pulse Ox 92 04/08/17 12:00 Intake & Output 04/07/17 04/08/17 04/08/17 18:59 06:59 18:59 Intake Total 1714 120 Output Total 1 Balance 1714 119 Weight (lbs) 51.71 kg 53.524 kg Intake: Intake, IV Amount 1694 Piperacillin Sodium/ 100 Tazobact 3.375 gm In Sodium Chloride 0.9% 50 ml @ 100 mls/hr IV Q6HR MAK Rx#:[id number] Sodium Chloride 0.9% 1, 1594 000 ml @ 90 mls/hr IV . Q11H7M MAK Rx#:[id number] Oral 20 120 Output: Urine/Stool Mix 1 Other: # Voids 2 1 # Bowel Movements 0 Active Medications: Current Medications Acetaminophen (Tylenol) 650 mg PO Q6HR PRN PRN Reason: MILD PAIN Stop: 06/04/17 16:18 Aspirin (Aspirin Chewable) 81 mg PO DAILY [facility] Stop: 06/05/17 08:59 Last Admin: 04/08/17 09:31 Dose: Not Given Bisacodyl (Dulcolax 10 Mg Supp) 10 mg RC DAILY PRN PRN Reason: CONSTIPATION NO BM 3 DAYS Stop: 06/04/17 16:18 Doxycycline Hyclate (Vibramycin) 100 mg PO Q12HR [facility] Stop: 06/07/17 12:59 Ferrous Sulfate (Iron) 325 mg PO BID [facility] Stop: 06/04/17 16:59 Last Admin: 04/08/17 09:31 Dose: Not Given Finasteride (Proscar) 5 mg PO DAILY MAK PRN Reason: Protocol Stop: 06/05/17 08:59 Last Admin: 04/08/17 09:31 Dose: Not Given Piperacillin Sod/Tazobactam (Sod 3.375 gm/ Sodium Chloride) 50 mls @ 100 mls/ hr IV Q6HR [facility] Stop: 06/04/17 17:59 Last Admin: 04/08/17 07:25 Dose: Not Given Sodium Chloride (Nacl 0.9%) 1,000 mls @ 90 mls/hr IV .Q11H7M [facility] Stop: 06/04/17 15:44 Last Admin: 04/08/17 00:51 Dose: Not Given Lactobacillus Rhamnosus (Culturelle) 1 each PO DAILY [facility] Stop: 06/05/17 08:59 Last Admin: 04/08/17 09:31 Dose: Not Given Lorazepam (Ativan) 0.5 mg PO Q4HR PRN; Protocol PRN Reason: Anxiety Stop: 06/04/17 16:18 Memantine (Namenda) 5 mg PO HS [facility] Stop: 06/04/17 20:59 Last Admin: 04/07/17 22:00 Dose: 5 mg Multivitamins/Vitamin C (Theragran) 1 tab PO DAILY [facility] Stop: 06/05/17 08:59 Last Admin: 04/08/17 09:31 Dose: Not Given Mupirocin (Bactroban Oint) 1 appl TP BID [facility] Stop: 06/06/17 16:59 Last Admin: 04/08/17 09:31 Dose: Not Given Quetiapine Fumarate (Seroquel) 25 mg PO Q12HR MAK PRN Reason: Protocol Stop: 06/04/17 16:29 Last Admin: 04/08/17 09:31 Dose: Not Given Valproate Sodium (Depakene) 250 mg PO Q12HR MAK PRN Reason: Protocol Stop: 06/04/17 20:59 Last Admin: 04/08/17 09:31 Dose: Not Given Zolpidem Tartrate (Ambien) 5 mg PO HS PRN PRN Reason: Insomnia Stop: 06/04/17 16:18 General: Alert, No acute distress, Other (Confused) HEENT: Atraumatic, PERRLA, EOMI, Mucous membr. moist/pink Neck: Supple, +2 carotid pulse wo bruit Cardiovascular: Regular rate, Normal S1, Normal S2 Lungs: Clear to auscultation Abdomen: Bowel sounds, Soft Extremities: Other (No edema), no Edema Neurological: Sensation intact, Other (Non ambulatory) Skin: Other (Warm and dry), no Rash Psych/Mental Status: Other (Awake, alert, calm, confused, not oriented) Assessment/Plan - Problem List Patient Problems: All Active Problems INCREASED CONFUSION AND AGITATION (Acute) - Assessment Assessment: DORITA vs. CKD Gout BPH Alzh Dementia w/ beh disturbance Acute Psychosis Cx UTI - Plan Plan: Lab - Result Diagrams 04/07/17 05:10 04/07/17 05:10 Current Medications Acetaminophen (Tylenol) 650 mg PO Q6HR PRN PRN Reason: MILD PAIN Stop: 06/04/17 16:18 Aspirin (Aspirin Chewable) 81 mg PO DAILY [facility] Stop: 06/05/17 08:59 Last Admin: 04/07/17 09:18 Dose: Not Given Bisacodyl (Dulcolax 10 Mg Supp) 10 mg RC DAILY PRN PRN Reason: CONSTIPATION NO BM 3 DAYS Stop: 06/04/17 16:18 Ferrous Sulfate (Iron) 325 mg PO BID [facility] Stop: 06/04/17 16:59 Last Admin: 04/07/17 09:17 Dose: Not Given Finasteride (Proscar) 5 mg PO DAILY MAK PRN Reason: Protocol Stop: 06/05/17 08:59 Last Admin: 04/07/17 09:18 Dose: Not Given Piperacillin Sod/Tazobactam (Sod 3.375 gm/ Sodium Chloride) 50 mls @ 100 mls/ hr IV Q6HR [facility] Stop: 06/04/17 17:59 Last Admin: 04/07/17 11:58 Dose: 100 mls/hr Sodium Chloride (Nacl 0.9%) 1,000 mls @ 90 mls/hr IV .Q11H7M MAK Stop: 06/04/17 15:44 Last Admin: 04/07/17 11:58 Dose: 90 mls/hr Lactobacillus Rhamnosus (Culturelle) 1 each PO DAILY [facility] Stop: 06/05/17 08:59 Last Admin: 04/07/17 09:18 Dose: Not Given Lorazepam (Ativan) 0.5 mg PO Q4HR PRN; Protocol PRN Reason: Anxiety Stop: 06/04/17 16:18 Memantine (Namenda) 5 mg PO HS [facility] Stop: 06/04/17 20:59 Last Admin: 04/06/17 20:39 Dose: 5 mg Multivitamins/Vitamin C (Theragran) 1 tab PO DAILY MAK Stop: 06/05/17 08:59 Last Admin: 04/07/17 09:18 Dose: Not Given Mupirocin (Bactroban Oint) 1 appl TP BID [facility] Stop: 06/06/17 16:59 Quetiapine Fumarate (Seroquel) 25 mg PO Q12HR MAK PRN Reason: Protocol Stop: 06/04/17 16:29 Last Admin: 04/07/17 09:18 Dose: Not Given Valproate Sodium (Depakene) 250 mg PO Q12HR MAK PRN Reason: Protocol Stop: 06/04/17 20:59 Last Admin: 04/07/17 09:18 Dose: Not Given Zolpidem Tartrate (Ambien) 5 mg PO HS PRN PRN Reason: Insomnia Stop: 06/04/17 16:18 Lab - Result Diagrams 04/08/17 12:15 04/08/17 12:15 Kidney fnc gradually improving w/ BUN/CR of 22/1.3 continue IVF agree w/ dc to ECF
[2017-04-08] MEDS ORDERED: Probiotic Screen MC PRN (15:17)
== END 2017-04-08 19:05 | DRG 682 ==
LOC: MSI 14:50
PROVIDERS: ADMIT General Practice; ATTEND General Practice
DX: N17.9 Acute kidney failure, unspecified (principal); G93.41 Metabolic encephalopathy; E44.0 Moderate protein-calorie malnutrition; G30.9 Alzheimer's disease, unspecified; F02.81 Dementia in other diseases classified elsewhere, unspecified severity, with behavioral disturbance; Z68.1 Body mass index [BMI] 19.9 or less, adult; N10 Acute pyelonephritis; G40.909 Epilepsy, unspecified, not intractable, without status epilepticus; F29 Unspecified psychosis not due to a substance or known physiological condition; M19.90 Unspecified osteoarthritis, unspecified site; M10.9 Gout, unspecified; N40.0 Benign prostatic hyperplasia without lower urinary tract symptoms; N18.9 Chronic kidney disease, unspecified; Z79.82 Long term (current) use of aspirin
CPT/HCPCS: 36415-UA; 80053-TC; 82043-90; 82570-TC; 83735-TC; 84100-TC; 84550-TC; 85007-TC; 85025-TC; 85027-TC; 87086-90; J2543; J7030; Z7610